=== PATIENT | female | born 1945 | race Caucasian/White ===

== ENCOUNTER 2020-04-25 10:44 | Inpatient (IN) | payer BC ==
[2020-04-25] MEDS ORDERED: Azithromycin 500 MG VIAL ONE (11:10)
[2020-04-25] MEDS ORDERED: Dexamethasone 10 MG/ML VIAL ONE (11:13)
[2020-04-25 12:27] LABS: #Lymphocytes 0.6 thou/uL (1.20-3.40); #Monocytes 0.3 thou/uL (0.11-0.59); #Neutrophils 2.5 thou/uL (1.40-6.50); %Basophils 0.3 % (0.0-1.0); %Eosinophils 0.3 % (0.0-10.0); %Lymphocytes 18.2 % (21.0-51.0); %Monocytes 8.4 % (0.0-10.0); %Neutrophils 72.7 % (42.0-75.0); Hemoglobin 12.5 g/dL (12.0-16.0); Mean Corpuscular HGB CONC 34.3 g/dL (32.0-36.0); Mean Corpuscular Hemoglobin 29.3 pg (27.0-31.0); Mean Corpuscular Volume 85.3 fL (78.0-98.0); Mean Platelet Volume 7.2 fL (7.4-10.4); Platelet Count 146 thou/uL (130-400); RBC Distribution Width 13.5 % (11.5-14.5); Red Blood Cell (RBC) Count 4.28 mill/uL (4.20-5.40); White Blood Cell (WBC) Count 3.4 thou/uL (4.8-10.8)
[2020-04-25 12:50] LABS: ALT (SGPT) 16 U/L (8-55); AST (SGOT) 37 U/L (5-34); Albumin 3.2 g/dL (3.4-4.8); Alkaline Phosphatase 80 U/L (40-110); Anion Gap 14 mmol/L (10-20); BUN (Urea Nitrogen) 12 mg/dL (9.8-20.1); Bilirubin, Total 0.8 mg/dL (0.2-1.2); Calc. Creatinine Clearance 0 mL/min (70-130); Calcium 7.8 mg/dL (7.8-10.44); Carbon Dioxide 24 mmol/L (23-31); Chloride 109 mmol/L (98-107); Estimated GFR-MDRD 79; Globulin 2.6 g/dL (2.4-3.5); Glucose 168 mg/dL (83-110); Potassium 3.4 mmol/L (3.5-5.1); Protein, Total 5.8 g/dL (6.0-8.3); Sodium 144 mmol/L (136-145)
--- NOTE | 2020-04-25 13:15 | RAD ---
PORTABLE CHEST: DATE: 04/25/2020. PROVIDED CLINICAL HISTORY: Shortness of breath. FINDINGS: Comparison 03/28/2014. Cardiac silhouette appears enlarged, which may be at least partially on the ba sis of portable technique. The lungs are hypoinflated. There is diffuse bilateral patchy airspace d isease and interstitial opacity. There is no pleural fluid or pneumothorax apparent. IMPRESSION: Diffuse bilateral interstitial and airspace disease, compatible with pneumonia. POS: [place]
[2020-04-25] MEDS ORDERED: Labetalol HCl 100 MG/20 ML VIAL ONE (13:40)
[2020-04-25] MEDS ORDERED: Ascorbic Acid 500 mg Chewable Tablet PO SCH (15:15)
[2020-04-25] MEDS ORDERED: Zinc Sulfate 220 MG CAP PO SCH (15:15)
[2020-04-25] MEDS ORDERED: Dextrose 5% in Water 1,000 ML IV PRN (16:06)
[2020-04-25] MEDS ORDERED: Dextrose 50% Abboject 50 ML SYRINGE SLOW IVP PRN (16:06)
--- NOTE | 2020-04-25 16:13 | HP ---
PRIMARY CARE PROVIDER: Joana Vidal. CHIEF COMPLAINT: Shortness of breath. HISTORY OF PRESENT ILLNESS: Ms. Escoto is a pleasant 75-year-old lady, who was seen at [facility] on April 25, 2020. She reports feeling unwell over the last 9 days. She reports cough as well as progressively worsening shortness of breath. She denies any sputum. She reports taking multiple doses of ibuprofen because of feeling unwell. She does not recall if she had a fever. She does not recall any exposure to COVID-19 virus. She reports generalized weakness. She reportedly tested positive for COVID-19 one week ago. She presented to the emergency room because of ongoing difficulty breathing. Her room air oxygen saturation was reportedly in the 80s and improved to 90s after application of supplemental oxygen. REVIEW OF SYSTEMS: All systems were reviewed and found to be negative except for the pertinent positives mentioned above. PAST MEDICAL HISTORY: 1. Diabetes mellitus. 2. Hypertension. 3. Coronary artery disease. 4. Congestive heart failure. PAST SURGICAL HISTORY: 1. Coronary artery stents. 2. Hysterectomy. 3. Tonsillectomy. SOCIAL HISTORY: The patient denies tobacco use, alcohol use, or recreational drug use. FAMILY HISTORY: No family history of premature coronary artery disease. ALLERGIES: ASPARTAME, CODEINE, GUAIFENESIN, AND MORPHINE. CURRENT MEDICATIONS: Doses need to be clarified, but she appears to be taking; 1. Isosorbide mononitrate. 2. Levothyroxine. 3. Losartan. 4. Metoprolol tartrate. 5. Pantoprazole. 6. Plavix. 7. Metformin. 8. Acarbose. 9. Aspirin. PHYSICAL EXAMINATION: GENERAL: Ms. Escoto is awake and alert, not in acute distress. VITAL SIGNS: Blood pressure is 191/92, pulse 81, respiratory rate 27, and oxygen saturation 99% on 2 L of oxygen. She is afebrile. EYES: No scleral icterus. No conjunctival pallor. ENT: Moist mucosal membranes. No oropharyngeal erythema or exudates. NECK: Supple, nontender. Trachea is midline. RESPIRATORY: Accessory muscles of breathing are mildly active. Chest wall movements are symmetric bilaterally. Lungs are clear to auscultation without wheeze, rhonchi, or crepitations. CARDIOVASCULAR: S1 and S2 are heard, regular. Peripheral pulses palpable. ABDOMEN: Soft, nontender, bowel sounds heard. NEUROLOGIC: Cranial nerves 2 through 12 are intact. MUSCULOSKELETAL: Power is 5/5 in all 4 extremities. SKIN: No rashes. LYMPHATIC: No cervical lymphadenopathy. PSYCHIATRIC: Normal mood, normal affect. The patient is oriented to person and place, not to time. LABORATORY AND DIAGNOSTIC DATA: Ms. Escoto's labs and investigations were reviewed. I reviewed her electrocardiogram, which shows normal sinus rhythm, no ST changes to suggest an acute coronary syndrome. I also reviewed her chest x-ray, which shows bilateral interstitial and airspace disease. She has leukopenia with 3400 white cells, lymphopenia with 600 lymphocytes, normal hemoglobin, normal platelet count, normal sodium, decreased potassium of 3.4, normal carbon dioxide, elevated glucose of 168, mildly elevated AST of 37, normal ALT, normal alkaline phosphatase, and normal troponin-I. ASSESSMENT AND PLAN: Ms. Escoto is a pleasant 75-year-old lady, who was seen at [facility] on April 25, 2020. Her problem list includes; 1. Acute hypoxic respiratory failure: Ms. Escoto is presenting with acute hypoxic respiratory failure, most likely secondary to COVID-19 pneumonia. She will be admitted to the hospital for further management and treated with supplemental oxygen. 2. COVID-19 pneumonia: Her presentation is most consistent with COVID-19 pneumonia. She is on day 9 of illness. She will be started on Remdesivir. She will also receive a dose of convalescent plasma. I have discussed her case with Infectious Disease Service on-call, who agrees with the plan of care. She will also be started on zinc and vitamin C. For now, she will also be covered with broad-spectrum antibiotics until she improves. 3. Diabetes mellitus type 2: Start Accu-Cheks and insulin sliding scale. 4. Coronary artery disease: Appears to be stable, the patient denies any chest pain, and troponin-I is normal. EKG does not show any acute changes. 5. Hypertension: Resume home medications once clarified, monitor vital signs and titrate antihypertensives as needed. 6. Congestive heart failure: Appears stable. 7. Many thanks for allowing me to participate in your patient's care. Please feel free to contact me with any questions or concerns. 8. Level of risk: High. 9. Level of complexity: High. 10. Estimated length of stay in the hospital: Greater than 2 midnights. Job ID: [id number]
[2020-04-25] MEDS ORDERED: REMDESIVIR (EUA) 200 MG in Sodium Chloride 0.9% 250 ML 210 ML IV SCH (17:00)
[2020-04-25] MEDS: HumaLOG 300 UNITS/3 ML VIAL SC PRN ×2 (18:13→20:32)
[2020-04-25] MEDS: Enoxaparin Sodium 30 MG/0.3 ML SYRINGE SC SCH (20:30)
[2020-04-25] MEDS: Acetaminophen 325 MG TAB PO PRN (20:30)
[2020-04-25] MEDS ORDERED: Enoxaparin Sodium 40 MG/0.4 ML SYRINGE SC SCH (21:00)
[2020-04-26] MEDS: Benzonatate 100 MG CAP PO PRN (00:54)
[2020-04-26] MEDS: Acetaminophen 325 MG TAB PO PRN (00:55)
[2020-04-26 06:55] LABS: Anion Gap 12 mmol/L (10-20); BUN (Urea Nitrogen) 18 mg/dL (9.8-20.1); Band 12 % (5-11); Calc. Creatinine Clearance 101 mL/min (70-130); Calcium 8.2 mg/dL (7.8-10.44); Carbon Dioxide 28 mmol/L (23-31); Chloride 109 mmol/L (98-107); Estimated GFR-MDRD 66; Glucose 197 mg/dL (83-110); Hemoglobin 11.2 g/dL (12.0-16.0); Lymphocytes 25 % (21-51); MDiff Complete? YES; Mean Corpuscular HGB CONC 31.9 g/dL (32.0-36.0); Mean Corpuscular Hemoglobin 27.8 pg (27.0-31.0); Mean Corpuscular Volume 87.2 fL (78.0-98.0); Mean Platelet Volume 7.5 fL (7.4-10.4); Monocytes 6 % (0-10); Neutrophil 57 % (42-75); Platelet Count 170 thou/uL (130-400); Platelet Morphology Comment Appears Adequate; Potassium 3.4 mmol/L (3.5-5.1); RBC Distribution Width 13.6 % (11.5-14.5); Red Blood Cell (RBC) Count 4.02 mill/uL (4.20-5.40); Sodium 146 mmol/L (136-145); White Blood Cell (WBC) Count 2.6 thou/uL (4.8-10.8)
[2020-04-26 07:00] LABS: ALT (SGPT) 18 U/L (8-55); AST (SGOT) 33 U/L (5-34); Albumin 3.2 g/dL (3.4-4.8); Alkaline Phosphatase 79 U/L (40-110); Bilirubin, Direct 0.3 mg/dL (0.1-0.3); Bilirubin, Total 0.5 mg/dL (0.2-1.2); Protein, Total 6.4 g/dL (6.0-8.3)
[2020-04-26] MEDS: Enoxaparin Sodium 30 MG/0.3 ML SYRINGE SC SCH ×2 (08:36→19:58)
[2020-04-26] MEDS: Ascorbic Acid 500 mg Chewable Tablet PO SCH (08:42)
[2020-04-26] MEDS: Dexamethasone 4 mg/ml Vial SLOW IVP SCH (08:42)
[2020-04-26] MEDS: Zinc Sulfate 220 MG CAP PO SCH (08:43)
[2020-04-26] MEDS ORDERED: FLU VACC QS2020-21(65YR UP)/PF 240 MCG/0.7 ML SYRINGE IM ONE (09:00)
[2020-04-26] MEDS: HumaLOG 300 UNITS/3 ML VIAL SC PRN ×3 (09:29→18:01)
[2020-04-26] MEDS: Azithromycin 500 MG in Sodium Chloride 0.9% 250 ML 250 ML IVPB SCH (11:14)
[2020-04-26] MEDS: cefTRIAXone\\ROCEPHIN 1 GM in Sodium Chloride 0.9% 100 ML IVPB SCH (11:15)
--- NOTE | 2020-04-26 11:29 | PDOC.HOSPP ---
- Subjective Encounter Date: 04/26/20 Encounter Time: 08:30 Subjective: Pt seen for followup re: acute hypoxic respiratory failure. Reports cough, on and off shortness of breath. - Objective Vital Signs & Weight: Vital Signs (12 hours) Temp Pulse Resp BP BP Pulse Ox 04/26/20 05:39 96 04/26/20 03:50 98.6 F 21 H 177/89 H 95 04/26/20 01:35 97.9 F 22 H 176/79 H 95 04/26/20 00:45 98.7 F 70 22 H 165/97 H 96 Weight Weight 244 lb 11.41 oz Most Recent Monitor Data Heart Rate from ECG 61 I&O: 04/25/20 04/26/20 04/27/20 06:59 06:59 06:59 Intake Total 790 Balance 790 Result Diagrams: 04/26/20 06:10 04/26/20 06:10 Additional Labs: Accuchecks 04/26/20 04/26/20 04/25/20 09:05 03:58 20:39 POC Glucose 178 H 179 H 240 H 04/25/20 18:01 POC Glucose 212 H I reviewed labs and MAR Hospitalist ROS - Review of Systems Constitutional: reports: weakness. denies: fever, chills, sweats, malaise Respiratory: reports: cough, SOB with excertion. denies: dry, shortness of breath, hemoptysis, pleuritic pain, sputum, wheezing Cardiovascular: denies: chest pain, palpitations, orthopnea, paroxysmal noc. dyspnea, edema, light headedness Gastrointestinal: denies: nausea, vomiting, abdominal pain, diarrhea, constipation, melena, hematochezia Genitourinary: denies: dysuria, frequency, incontinence, hematuria, retention Skin: denies: rash, lesions, phi, bruising - Medication Medications: Active Medications Generic Name Dose Route Start Last Admin Trade Name Freq PRN Reason Stop Dose Admin Acetaminophen 650 mg 04/25/20 15:11 04/26/20 00:55 Acetaminophen 325 Mg Tab PO 650 mg Q4H PRN Administration Headache/Fever/Mild Pain (1-3) Ascorbic Acid 1,000 mg 04/26/20 09:00 04/26/20 08:42 Ascorbic Acid 500 Mg Chewable Tablet PO 1,000 mg DAILY BON Administration Benzonatate 100 mg 04/25/20 23:27 04/26/20 00:54 Benzonatate 100 Mg Cap PO 100 mg TIDPRN PRN Administration Cough Dexamethasone 6 mg 04/26/20 09:00 04/26/20 08:42 Dexamethasone 4 Mg/Ml Vial SLOW IVP 6 mg DAILY BON Administration Enoxaparin Sodium 30 mg 04/25/20 21:00 04/26/20 08:36 Enoxaparin Sodium 30 Mg/0.3 Ml Syringe SC 30 mg 0900,2100 BON Administration Azithromycin 500 mg/ Sodium 250 mls @ 250 mls/hr 04/26/20 10:00 04/26/20 11:14 Chloride IVPB 250 mls Q24HR BON Administration Ceftriaxone Sodium 1 gm/ 100 mls @ 200 mls/hr 04/26/20 11:00 04/26/20 11:15 Sodium Chloride IVPB 100 mls Q24HR BON Administration Insulin Human Lispro 0 units 04/25/20 16:06 04/26/20 09:29 Humalog 300 Units/3 Ml Vial SC 2 units .MILD SLIDING SCALE PRN Administration Mild Correctional Scale Zinc Sulfate 220 mg 04/26/20 09:00 04/26/20 08:43 Zinc Sulfate 220 Mg Cap PO 220 mg DAILY BON Administration - Exam General Appearance: awake alert Eye: anicteric sclera ENT: normocephalic atraumatic, moist mucosa Neck: supple, symmetric, no thyromegaly, no lymphadenopathy Heart: RRR, no gallops, no rubs, normal peripheral pulses Respiratory: CTAB, no wheezes, no rales, no ronchi, normal chest expansion Gastrointestinal: soft, non-tender, non-distended, normal bowel sounds Extremities: no cyanosis Skin: no rashes Psychiatric: normal affect, normal behavior, oriented to person, oriented to place Hosp A/P (1) Acute respiratory failure with hypoxia Code(s): J96.01 - ACUTE RESPIRATORY FAILURE WITH HYPOXIA Status: Acute (2) Pneumonia due to COVID-19 virus Code(s): U07.1 - COVID-19; J12.89 - OTHER VIRAL PNEUMONIA Status: Acute (3) DM2 (diabetes mellitus, type 2) Status: Chronic (4) HTN (hypertension) Code(s): I10 - ESSENTIAL (PRIMARY) HYPERTENSION Status: Chronic (5) CAD (coronary artery disease) Code(s): I25.10 - ATHSCL HEART DISEASE OF [place] CORONARY ARTERY W/O ANG PCTRS Status: Chronic - Plan Pt received convalescent plasma. Started on Remdesivir, dexamethasone, zinc and Vitamin C. Monitor inflammatory markers. Resume Losartan, monitor vital signs and titrate antihypertensives as needed. Continue accuchecks and insulin sliding scale, resume metformin.
[2020-04-26] MEDS ORDERED: Potassium Chloride 20 MEQ TAB PO SCH (11:45)
[2020-04-26] MEDS ORDERED: Losartan 25 MG TAB PO SCH (11:45)
[2020-04-26] MEDS: metFORMIN 500 MG TAB PO SCH (17:33)
[2020-04-26] MEDS: REMDESIVIR (EUA) 100 MG in Sodium Chloride 0.9% 250 ML 230 ML IV SCH (17:33)
[2020-04-26] MEDS ORDERED: Enalaprilat Dihydrate 1.25 MG/ML VIAL SLOW IVP PRN (20:00)
[2020-04-26] MEDS ORDERED: hydrALAZINE 25 MG TAB PO SCH (23:59)
[2020-04-27] MEDS ORDERED: ALPRAZolam 0.25 MG TAB PO SCH (03:30)
[2020-04-27] MEDS: HumaLOG 300 UNITS/3 ML VIAL SC PRN ×3 (04:56→17:50)
[2020-04-27] MEDS: Levothyroxine Sodium 25 MCG TAB PO SCH (05:26)
[2020-04-27] MEDS: Ascorbic Acid 500 mg Chewable Tablet PO SCH (07:53)
[2020-04-27] MEDS: Losartan 25 MG TAB PO SCH (07:53)
[2020-04-27] MEDS: metFORMIN 500 MG TAB PO SCH ×2 (07:53→17:08)
[2020-04-27] MEDS: Enoxaparin Sodium 30 MG/0.3 ML SYRINGE SC SCH ×2 (07:56→20:34)
[2020-04-27] MEDS: Dexamethasone 4 mg/ml Vial SLOW IVP SCH (07:57)
[2020-04-27] MEDS: Clopidogrel Bisulfate 75 MG TAB PO SCH (07:57)
[2020-04-27] MEDS: hydrALAZINE 25 MG TAB PO SCH ×3 (08:14→20:34)
[2020-04-27] MEDS: Labetalol HCl 100 MG/20 ML VIAL SLOW IVP PRN ×2 (08:15→23:45)
[2020-04-27 08:37] LABS: #Lymphocytes 0.9 thou/uL (1.20-3.40); #Monocytes 0.6 thou/uL (0.11-0.59); #Neutrophils 8.2 thou/uL (1.40-6.50); %Basophils 0.1 % (0.0-1.0); %Eosinophils 0.1 % (0.0-10.0); %Lymphocytes 8.8 % (21.0-51.0); %Monocytes 6.6 % (0.0-10.0); %Neutrophils 84.5 % (42.0-75.0); Hemoglobin 12.8 g/dL (12.0-16.0); Mean Corpuscular HGB CONC 31.4 g/dL (32.0-36.0); Mean Corpuscular Hemoglobin 27.3 pg (27.0-31.0); Platelet Count 246 thou/uL (130-400); RBC Distribution Width 13.7 % (11.5-14.5); Red Blood Cell (RBC) Count 4.68 mill/uL (4.20-5.40); White Blood Cell (WBC) Count 9.7 thou/uL (4.8-10.8)
[2020-04-27 09:00] LABS: Anion Gap 15 mmol/L (10-20); BUN (Urea Nitrogen) 22 mg/dL (9.8-20.1); Calc. Creatinine Clearance 115 mL/min (70-130); Calcium 8.3 mg/dL (7.8-10.44); Carbon Dioxide 22 mmol/L (23-31); Chloride 113 mmol/L (98-107); Estimated GFR-MDRD 77; Glucose 192 mg/dL (83-110); Potassium 3.4 mmol/L (3.5-5.1); Sodium 147 mmol/L (136-145)
[2020-04-27 09:03] LABS: ALT (SGPT) 19 U/L (8-55); AST (SGOT) 31 U/L (5-34); Alkaline Phosphatase 74 U/L (40-110); Bilirubin, Direct 0.3 mg/dL (0.1-0.3); Bilirubin, Total 0.5 mg/dL (0.2-1.2); Protein, Total 6.4 g/dL (6.0-8.3)
[2020-04-27] MEDS: Azithromycin 500 MG in Sodium Chloride 0.9% 250 ML 250 ML IVPB SCH (10:28)
[2020-04-27] MEDS: cefTRIAXone\\ROCEPHIN 1 GM in Sodium Chloride 0.9% 100 ML IVPB SCH (10:28)
[2020-04-27] MEDS: Zinc Sulfate 220 MG CAP PO SCH (10:28)
--- NOTE | 2020-04-27 14:23 | PDOC.HOSPP ---
- Subjective Encounter Date: 04/27/20 Encounter Time: 10:50 Subjective: Patient seen for follow-up regarding acute hypoxic respiratory failure. Has increased oxygen requirements. - Objective Vital Signs & Weight: Vital Signs (12 hours) Temp Pulse Resp BP BP Pulse Ox 04/27/20 10:35 73 22 H 182/90 H 94 L 04/27/20 08:23 95 04/27/20 08:15 73 182/110 H 04/27/20 08:14 73 182/110 H 04/27/20 08:11 97.5 F L 73 20 182/110 H 95 04/27/20 04:12 98.4 F 72 24 H 173/119 H 93 L Weight Weight 244 lb 11.41 oz Most Recent Monitor Data Heart Rate from ECG 61 I&O: 04/26/20 04/27/20 04/28/20 06:59 06:59 06:59 Intake Total 790 700 Output Total 600 Balance 790 100 Result Diagrams: 04/27/20 07:55 04/27/20 07:55 Additional Labs: Accuchecks 04/27/20 04/27/20 04/26/20 10:37 04:36 20:06 POC Glucose 212 H 212 H 201 H 04/26/20 17:44 POC Glucose 203 H I reviewed patient's labs and MAR Hospitalist ROS - Review of Systems Respiratory: reports: cough, shortness of breath, SOB with excertion. denies: dry, hemoptysis, pleuritic pain, sputum, wheezing Cardiovascular: denies: chest pain, palpitations, orthopnea, paroxysmal noc. dyspnea, edema, light headedness - Medication Medications: Active Medications Generic Name Dose Route Start Last Admin Trade Name Freq PRN Reason Stop Dose Admin Acetaminophen 650 mg 04/25/20 15:11 04/26/20 00:55 Acetaminophen 325 Mg Tab PO 650 mg Q4H PRN Administration Headache/Fever/Mild Pain (1-3) Ascorbic Acid 1,000 mg 04/26/20 09:00 04/27/20 07:53 Ascorbic Acid 500 Mg Chewable Tablet PO 1,000 mg DAILY BON Administration Benzonatate 100 mg 04/25/20 23:27 04/26/20 00:54 Benzonatate 100 Mg Cap PO 100 mg TIDPRN PRN Administration Cough Clopidogrel Bisulfate 75 mg 04/27/20 09:00 04/27/20 07:57 Clopidogrel Bisulfate 75 Mg Tab PO 75 mg DAILY BON Administration Dexamethasone 6 mg 04/26/20 09:00 04/27/20 07:57 Dexamethasone 4 Mg/Ml Vial SLOW IVP 6 mg DAILY BON Administration Enalaprilat 2.5 mg 04/26/20 20:00 04/26/20 20:00 Enalaprilat Dihydrate 1.25 Mg/Ml Vial SLOW IVP 2.5 mg Q6H PRN Administration SBP Greater Than 170 Enoxaparin Sodium 30 mg 04/25/20 21:00 04/27/20 07:56 Enoxaparin Sodium 30 Mg/0.3 Ml Syringe SC 30 mg 0900,2100 BON Administration Hydralazine HCl 25 mg 04/27/20 09:00 04/27/20 08:14 Hydralazine 25 Mg Tab PO 25 mg TID BON Administration Remdesivir 100 mg/ Sodium 250 mls @ 250 mls/hr 04/26/20 17:00 04/26/20 17:33 Chloride IV 04/29/20 17:59 250 mls 1700 BON Administration Azithromycin 500 mg/ Sodium 250 mls @ 250 mls/hr 04/26/20 10:00 04/27/20 10:28 Chloride IVPB 250 mls Q24HR BON Administration Ceftriaxone Sodium 1 gm/ 100 mls @ 200 mls/hr 04/26/20 11:00 04/27/20 10:28 Sodium Chloride IVPB 100 mls Q24HR BON Administration Insulin Human Lispro 0 units 04/25/20 16:06 04/27/20 12:34 Humalog 300 Units/3 Ml Vial SC 3 units .MILD SLIDING SCALE PRN Administration Mild Correctional Scale Labetalol HCl 10 mg 04/27/20 07:47 04/27/20 08:15 Labetalol Hcl 100 Mg/20 Ml Vial SLOW IVP 10 mg Q4H PRN Administration SBP Greater Than 180 Levothyroxine Sodium 25 mcg 04/27/20 06:00 04/27/20 05:26 Levothyroxine Sodium 25 Mcg Tab PO 25 mcg 0600 BON Administration Losartan Potassium 100 mg 04/27/20 09:00 04/27/20 07:53 Losartan 25 Mg Tab PO 100 mg DAILY BON Administration Metformin HCl 500 mg 04/26/20 17:00 04/27/20 07:53 Metformin 500 Mg Tab PO 500 mg BID-WM BON Administration Zinc Sulfate 220 mg 04/26/20 09:00 04/27/20 10:28 Zinc Sulfate 220 Mg Cap PO 220 mg DAILY BON Administration - Exam General Appearance: awake alert Eye: anicteric sclera ENT: moist mucosa Neck: supple Heart: RRR Respiratory: CTAB, no wheezes Gastrointestinal: soft, non-tender Skin: no rashes Psychiatric: normal affect, normal behavior Hosp A/P (1) Acute respiratory failure with hypoxia Code(s): J96.01 - ACUTE RESPIRATORY FAILURE WITH HYPOXIA Status: Acute (2) Pneumonia due to COVID-19 virus Code(s): U07.1 - COVID-19; J12.89 - OTHER VIRAL PNEUMONIA Status: Acute (3) HTN (hypertension) Code(s): I10 - ESSENTIAL (PRIMARY) HYPERTENSION Status: Chronic (4) DM2 (diabetes mellitus, type 2) Status: Chronic (5) CAD (coronary artery disease) Code(s): I25.10 - ATHSCL HEART DISEASE OF [place] CORONARY ARTERY W/O ANG PCTRS Status: Chronic - Plan Pt received convalescent plasma. Continue remdesivir, dexamethasone, zinc and Vitamin C. Monitor inflammatory markers. Blood pressure still high, start hydralazine 25 mg 3 times daily and as needed IV labetalol 10 mg every 4 hours as needed for systolic blood pressure greater than 180 mmHg Continue accuchecks and insulin sliding scale, continue metformin.
[2020-04-27] MEDS: REMDESIVIR (EUA) 100 MG in Sodium Chloride 0.9% 250 ML 230 ML IV SCH (17:50)
[2020-04-27] MEDS ORDERED: ALPRAZolam 0.25 MG TAB PO PRN (23:07)
[2020-04-28] MEDS: HumaLOG 300 UNITS/3 ML VIAL SC PRN ×4 (04:43→21:17)
[2020-04-28] MEDS: Levothyroxine Sodium 25 MCG TAB PO SCH (05:30)
[2020-04-28 06:48] LABS: #Lymphocytes 0.7 thou/uL (1.20-3.40); #Monocytes 0.5 thou/uL (0.11-0.59); #Neutrophils 8.4 thou/uL (1.40-6.50); %Basophils 0.1 % (0.0-1.0); %Eosinophils 0.1 % (0.0-10.0); %Lymphocytes 6.8 % (21.0-51.0); %Monocytes 5.5 % (0.0-10.0); %Neutrophils 87.5 % (42.0-75.0); Hemoglobin 12.6 g/dL (12.0-16.0); Mean Corpuscular HGB CONC 33.1 g/dL (32.0-36.0); Mean Corpuscular Hemoglobin 28.3 pg (27.0-31.0); Mean Corpuscular Volume 85.6 fL (78.0-98.0); Mean Platelet Volume 7.2 fL (7.4-10.4); Platelet Count 246 thou/uL (130-400); RBC Distribution Width 13.8 % (11.5-14.5); Red Blood Cell (RBC) Count 4.46 mill/uL (4.20-5.40); White Blood Cell (WBC) Count 9.7 thou/uL (4.8-10.8)
[2020-04-28 07:03] LABS: Anion Gap 16 mmol/L (10-20); BUN (Urea Nitrogen) 23 mg/dL (9.8-20.1); CRP (Inflammatory) 6.47 mg/dL (= or < 0.5); Calc. Creatinine Clearance 117 mL/min (70-130); Carbon Dioxide 22 mmol/L (23-31); Chloride 114 mmol/L (98-107); Estimated GFR-MDRD 78; Glucose 231 mg/dL (83-110); Potassium 3.2 mmol/L (3.5-5.1); Sodium 149 mmol/L (136-145)
[2020-04-28 07:15] LABS: ALT (SGPT) 18 U/L (8-55); AST (SGOT) 27 U/L (5-34); Alkaline Phosphatase 79 U/L (40-110); Bilirubin, Direct 0.3 mg/dL (0.1-0.3); Bilirubin, Total 0.5 mg/dL (0.2-1.2); Protein, Total 5.9 g/dL (6.0-8.3)
[2020-04-28] MEDS: Dexamethasone 4 mg/ml Vial SLOW IVP SCH (10:02)
[2020-04-28] MEDS: Azithromycin 500 MG in Sodium Chloride 0.9% 250 ML 250 ML IVPB SCH (10:02)
[2020-04-28] MEDS: Enoxaparin Sodium 30 MG/0.3 ML SYRINGE SC SCH ×2 (10:03→19:46)
[2020-04-28] MEDS: Clopidogrel Bisulfate 75 MG TAB PO SCH (10:04)
[2020-04-28] MEDS: Ascorbic Acid 500 mg Chewable Tablet PO SCH (10:04)
[2020-04-28] MEDS: Losartan 25 MG TAB PO SCH (10:04)
[2020-04-28] MEDS: Zinc Sulfate 220 MG CAP PO SCH (10:04)
[2020-04-28] MEDS: hydrALAZINE 25 MG TAB PO SCH ×3 (10:04→19:47)
[2020-04-28] MEDS: metFORMIN 500 MG TAB PO SCH ×2 (10:05→16:21)
[2020-04-28] MEDS: cefTRIAXone\\ROCEPHIN 1 GM in Sodium Chloride 0.9% 100 ML IVPB SCH (11:47)
--- NOTE | 2020-04-28 12:31 | PDOC.HOSPP ---
- Subjective Encounter Date: 04/28/20 Encounter Time: 10:00 Subjective: Patient seen in follow-up for COVID-19 pneumonia. Had an episode of anxiety last night. Is having increasing oxygen requirements. - Objective Vital Signs & Weight: Vital Signs (12 hours) Temp Pulse Resp BP BP BP Pulse Ox 04/28/20 12:07 98.5 F 79 25 H 170/104 H 94 L 04/28/20 10:04 75 196/124 H 04/28/20 08:00 98 F 79 26 H 175/94 H 91 L Weight Weight 244 lb 11.41 oz Most Recent Monitor Data Heart Rate from ECG 61 I&O: 04/27/20 04/28/20 04/29/20 06:59 06:59 06:59 Intake Total 700 1130 Output Total 600 Balance 100 1130 Result Diagrams: 04/28/20 06:26 04/28/20 06:26 Additional Labs: Accuchecks 04/28/20 04/27/20 04/27/20 11:15 20:44 17:14 POC Glucose 223 H 226 H 249 H I reviewed patient's labs and MAR Hospitalist ROS - Review of Systems Respiratory: reports: cough, dry Cardiovascular: denies: chest pain, palpitations, orthopnea, paroxysmal noc. dyspnea, edema, light headedness - Medication Medications: Active Medications Generic Name Dose Route Start Last Admin Trade Name Freq PRN Reason Stop Dose Admin Acetaminophen 650 mg 04/25/20 15:11 04/26/20 00:55 Acetaminophen 325 Mg Tab PO 650 mg Q4H PRN Administration Headache/Fever/Mild Pain (1-3) Alprazolam 0.25 mg 04/27/20 23:07 04/27/20 23:11 Alprazolam 0.25 Mg Tab PO 0.25 mg HSPRN PRN Administration Anxiety/Insomnia Ascorbic Acid 1,000 mg 04/26/20 09:00 04/28/20 10:04 Ascorbic Acid 500 Mg Chewable Tablet PO 1,000 mg DAILY BON Administration Benzonatate 100 mg 04/25/20 23:27 04/26/20 00:54 Benzonatate 100 Mg Cap PO 100 mg TIDPRN PRN Administration Cough Clopidogrel Bisulfate 75 mg 04/27/20 09:00 04/28/20 10:04 Clopidogrel Bisulfate 75 Mg Tab PO 75 mg DAILY BON Administration Dexamethasone 6 mg 04/26/20 09:00 04/28/20 10:02 Dexamethasone 4 Mg/Ml Vial SLOW IVP 6 mg DAILY BON Administration Enalaprilat 2.5 mg 04/26/20 20:00 04/26/20 20:00 Enalaprilat Dihydrate 1.25 Mg/Ml Vial SLOW IVP 2.5 mg Q6H PRN Administration SBP Greater Than 170 Enoxaparin Sodium 30 mg 04/25/20 21:00 04/28/20 10:03 Enoxaparin Sodium 30 Mg/0.3 Ml Syringe SC 30 mg 0900,2100 BON Administration Hydralazine HCl 50 mg 04/28/20 09:00 04/28/20 10:04 Hydralazine 25 Mg Tab PO 50 mg TID BON Administration Remdesivir 100 mg/ Sodium 250 mls @ 250 mls/hr 04/26/20 17:00 04/27/20 17:50 Chloride IV 04/29/20 17:59 250 mls 1700 BON Administration Azithromycin 500 mg/ Sodium 250 mls @ 250 mls/hr 04/26/20 10:00 04/28/20 10:02 Chloride IVPB 250 mls Q24HR BON Administration Ceftriaxone Sodium 1 gm/ 100 mls @ 200 mls/hr 04/26/20 11:00 04/28/20 11:47 Sodium Chloride IVPB 100 mls Q24HR BON Administration Insulin Human Lispro 0 units 04/25/20 16:06 04/28/20 11:48 Humalog 300 Units/3 Ml Vial SC 3 units .MILD SLIDING SCALE PRN Administration Mild Correctional Scale Labetalol HCl 10 mg 04/27/20 07:47 04/27/20 23:45 Labetalol Hcl 100 Mg/20 Ml Vial SLOW IVP 10 mg Q4H PRN Administration SBP Greater Than 180 Levothyroxine Sodium 25 mcg 04/27/20 06:00 04/28/20 05:30 Levothyroxine Sodium 25 Mcg Tab PO 25 mcg 0600 BON Administration Losartan Potassium 100 mg 04/27/20 09:00 04/28/20 10:04 Losartan 25 Mg Tab PO 100 mg DAILY BON Administration Metformin HCl 500 mg 04/26/20 17:00 04/28/20 10:05 Metformin 500 Mg Tab PO 500 mg BID-WM BON Administration Zinc Sulfate 220 mg 04/26/20 09:00 04/28/20 10:04 Zinc Sulfate 220 Mg Cap PO 220 mg DAILY OBN Administration - Exam General Appearance: awake alert Eye: anicteric sclera ENT: moist mucosa Neck: supple Heart: RRR Respiratory: CTAB, no wheezes Skin: no rashes Psychiatric: normal affect, normal behavior Hosp A/P (1) Pneumonia due to COVID-19 virus Code(s): U07.1 - COVID-19; J12.89 - OTHER VIRAL PNEUMONIA Status: Acute (2) Acute respiratory failure with hypoxia Code(s): J96.01 - ACUTE RESPIRATORY FAILURE WITH HYPOXIA Status: Acute (3) HTN (hypertension) Code(s): I10 - ESSENTIAL (PRIMARY) HYPERTENSION Status: Chronic (4) DM2 (diabetes mellitus, type 2) Status: Chronic (5) CAD (coronary artery disease) Code(s): I25.10 - ATHSCL HEART DISEASE OF [place] CORONARY ARTERY W/O ANG PCTRS Status: Chronic - Plan Pt received convalescent plasma, currently on remdesivir, dexamethasone, zinc and Vitamin C. Continue to monitor inflammatory markers. Blood pressure still high, increase hydralazine to 50 mg p.o. 3 times daily. Continue accuchecks and insulin sliding scale, continue metformin. Patient may need high flow oxygen.
[2020-04-28] MEDS: REMDESIVIR (EUA) 100 MG in Sodium Chloride 0.9% 250 ML 230 ML IV SCH (16:57)
[2020-04-28] MEDS: ALPRAZolam 0.25 MG TAB PO PRN (19:47)
[2020-04-28] MEDS: Benzonatate 100 MG CAP PO PRN (19:52)
[2020-04-28] MEDS: Labetalol HCl 100 MG/20 ML VIAL SLOW IVP PRN (21:18)
[2020-04-29] MEDS: Melatonin 3 MG TAB PO PRN (00:09)
[2020-04-29] MEDS: Benzonatate 100 MG CAP PO PRN ×2 (05:10→21:19)
[2020-04-29] MEDS: Levothyroxine Sodium 25 MCG TAB PO SCH (05:10)
[2020-04-29] MEDS: HumaLOG 300 UNITS/3 ML VIAL SC PRN ×3 (05:30→20:48)
[2020-04-29] MEDS: ALPRAZolam 0.25 MG TAB PO PRN ×3 (05:30→16:40)
[2020-04-29] MEDS: Ondansetron PF 4 MG/2 ML Vial IVP PRN (05:30)
[2020-04-29] MEDS: Labetalol HCl 100 MG/20 ML VIAL SLOW IVP PRN ×3 (05:43→17:02)
[2020-04-29 05:59] LABS: ALT (SGPT) 17 U/L (8-55); AST (SGOT) 22 U/L (5-34); Albumin 2.9 g/dL (3.4-4.8); Alkaline Phosphatase 79 U/L (40-110); Bilirubin, Direct 0.3 mg/dL (0.1-0.3); Bilirubin, Total 0.5 mg/dL (0.2-1.2)
[2020-04-29] MEDS: Dexamethasone 4 mg/ml Vial SLOW IVP SCH (08:53)
[2020-04-29] MEDS: Zinc Sulfate 220 MG CAP PO SCH (08:53)
[2020-04-29] MEDS: Ascorbic Acid 500 mg Chewable Tablet PO SCH (08:53)
[2020-04-29] MEDS: Enoxaparin Sodium 30 MG/0.3 ML SYRINGE SC SCH ×2 (08:54→20:13)
[2020-04-29] MEDS: Clopidogrel Bisulfate 75 MG TAB PO SCH (08:54)
[2020-04-29] MEDS: metFORMIN 500 MG TAB PO SCH ×2 (08:54→16:40)
[2020-04-29] MEDS: Losartan 25 MG TAB PO SCH (08:54)
[2020-04-29] MEDS: Azithromycin 500 MG in Sodium Chloride 0.9% 250 ML 250 ML IVPB SCH (09:01)
[2020-04-29] MEDS: hydrALAZINE 25 MG TAB PO SCH ×3 (09:02→20:14)
[2020-04-29] MEDS: cefTRIAXone\\ROCEPHIN 1 GM in Sodium Chloride 0.9% 100 ML IVPB SCH (11:54)
[2020-04-29] MEDS: REMDESIVIR (EUA) 100 MG in Sodium Chloride 0.9% 250 ML 230 ML IV SCH (18:11)
[2020-04-29] MEDS ORDERED: Haloperidol Lactate 5 MG/ML VIAL IM PRN (18:44)
--- NOTE | 2020-04-29 19:02 | PDOC.HOSPP ---
- Subjective Encounter Date: 04/29/20 Encounter Time: 11:00 Subjective: Patient was seen for follow-up regarding COVID-19 pneumonia. Has episodes of agitation. Was transitioned to high flow oxygen. Reports burning sensation in the nose. - Objective Vital Signs & Weight: Vital Signs (12 hours) Temp Pulse Resp BP BP Pulse Ox 04/29/20 17:02 82 181/109 H 04/29/20 16:56 82 24 H 180/109 H 95 04/29/20 14:20 83 178/100 H 04/29/20 14:18 97.7 F 83 22 H 178/100 H 94 L 04/29/20 11:29 98.7 F 83 22 H 171/99 H 95 04/29/20 10:31 96 04/29/20 10:00 25 H 174/104 H 95 04/29/20 09:10 87 L 04/29/20 09:08 74 182/111 H 04/29/20 09:02 74 04/29/20 09:00 98.5 F 78 36 H 182/111 H 87 L Weight Weight 244 lb 11.41 oz Most Recent Monitor Data Heart Rate from ECG 61 I&O: 04/28/20 04/29/20 04/30/20 06:59 06:59 06:59 Intake Total 1130 1460 750 Output Total 675 400 Balance 1130 785 350 Result Diagrams: 04/28/20 06:26 04/28/20 06:26 Additional Labs: Accuchecks 04/29/20 04/29/20 04/29/20 16:37 11:21 05:13 POC Glucose 301 H 253 H 226 H 04/28/20 04/28/20 19:56 04:29 POC Glucose 301 H 222 H Labs and MAR reviewed by mi Hospitalist ROS - Review of Systems Constitutional: reports: weakness. denies: fever, chills, sweats, malaise Respiratory: reports: cough, dry, shortness of breath Cardiovascular: denies: chest pain, palpitations, orthopnea, paroxysmal noc. dyspnea, edema, light headedness - Medication Medications: Active Medications Generic Name Dose Route Start Last Admin Trade Name Freq PRN Reason Stop Dose Admin Acetaminophen 650 mg 04/25/20 15:11 04/26/20 00:55 Acetaminophen 325 Mg Tab PO 650 mg Q4H PRN Administration Headache/Fever/Mild Pain (1-3) Alprazolam 0.25 mg 04/29/20 15:15 04/29/20 16:40 Alprazolam 0.25 Mg Tab PO 0.25 mg Q6H PRN Administration Anxiety Ascorbic Acid 1,000 mg 04/26/20 09:00 04/29/20 08:53 Ascorbic Acid 500 Mg Chewable Tablet PO 1,000 mg DAILY BON Administration Benzonatate 100 mg 04/25/20 23:27 04/29/20 05:10 Benzonatate 100 Mg Cap PO 100 mg TIDPRN PRN Administration Cough Clopidogrel Bisulfate 75 mg 04/27/20 09:00 04/29/20 08:54 Clopidogrel Bisulfate 75 Mg Tab PO 75 mg DAILY BON Administration Dexamethasone 6 mg 04/26/20 09:00 04/29/20 08:53 Dexamethasone 4 Mg/Ml Vial SLOW IVP 6 mg DAILY BON Administration Enalaprilat 2.5 mg 04/26/20 20:00 04/26/20 20:00 Enalaprilat Dihydrate 1.25 Mg/Ml Vial SLOW IVP 2.5 mg Q6H PRN Administration SBP Greater Than 170 Enoxaparin Sodium 30 mg 04/25/20 21:00 04/29/20 08:54 Enoxaparin Sodium 30 Mg/0.3 Ml Syringe SC 30 mg 0900,2100 BON Administration Hydralazine HCl 75 mg 04/29/20 09:00 04/29/20 14:20 Hydralazine 25 Mg Tab PO 75 mg TID BON Administration Azithromycin 500 mg/ Sodium 250 mls @ 250 mls/hr 04/26/20 10:00 04/29/20 09:01 Chloride IVPB 250 mls Q24HR BON Administration Ceftriaxone Sodium 1 gm/ 100 mls @ 200 mls/hr 04/26/20 11:00 04/29/20 11:54 Sodium Chloride IVPB 100 mls Q24HR BON Administration Insulin Human Lispro 0 units 04/25/20 16:06 04/29/20 16:55 Humalog 300 Units/3 Ml Vial SC 5 units .MILD SLIDING SCALE PRN Administration Mild Correctional Scale Insulin Human Lispro 0 units 04/28/20 20:35 04/28/20 21:17 Humalog 300 Units/3 Ml Vial SC 4 unit .BEDTIME SLIDING SC PRN Administration Bedtime Correctional Scale Labetalol HCl 10 mg 04/27/20 07:47 04/29/20 17:02 Labetalol Hcl 100 Mg/20 Ml Vial SLOW IVP 10 mg Q4H PRN Administration SBP Greater Than 180 Levothyroxine Sodium 25 mcg 04/27/20 06:00 04/29/20 05:10 Levothyroxine Sodium 25 Mcg Tab PO 25 mcg 0600 BON Administration Losartan Potassium 100 mg 04/27/20 09:00 04/29/20 08:54 Losartan 25 Mg Tab PO 100 mg DAILY BON Administration Melatonin 3 mg 04/29/20 00:03 04/29/20 00:09 Melatonin 3 Mg Tab PO 3 mg HS PRN Administration Insomnia Metformin HCl 500 mg 04/26/20 17:00 04/29/20 16:40 Metformin 500 Mg Tab PO 500 mg BID-WM BON Administration Ondansetron HCl 4 mg 04/25/20 15:11 04/29/20 05:30 Ondansetron Pf 4 Mg/2 Ml Vial IVP 4 mg Q6H PRN Administration Nausea/Vomiting Zinc Sulfate 220 mg 04/26/20 09:00 04/29/20 08:53 Zinc Sulfate 220 Mg Cap PO 220 mg DAILY BON Administration - Exam General - other findings: Morbid obesity Eye: anicteric sclera ENT: moist mucosa Neck: supple Heart: RRR Respiratory: CTAB Gastrointestinal: soft, non-tender Psychiatric: normal affect, normal behavior Hosp A/P (1) Pneumonia due to COVID-19 virus Code(s): U07.1 - COVID-19; J12.89 - OTHER VIRAL PNEUMONIA Status: Acute (2) Acute respiratory failure with hypoxia Code(s): J96.01 - ACUTE RESPIRATORY FAILURE WITH HYPOXIA Status: Acute (3) HTN (hypertension) Code(s): I10 - ESSENTIAL (PRIMARY) HYPERTENSION Status: Chronic (4) DM2 (diabetes mellitus, type 2) Status: Chronic (5) CAD (coronary artery disease) Code(s): I25.10 - ATHSCL HEART DISEASE OF [place] CORONARY ARTERY W/O ANG PCTRS Status: Chronic - Plan Pt received convalescent plasma, received last dose of remdesivir today., Continue dexamethasone, zinc and Vitamin C. Continue to monitor inflammatory markers. Blood pressure still high, increase hydralazine to 75 mg p.o. 3 times daily. Continue accuchecks and insulin sliding scale, continue metformin. Patient is on high flow oxygen. As needed Haldol for agitation. As needed Ambien for insomnia. Change Xanax to 0.25 mg p.o. every 6 hours as needed. Family updated over telephone.
[2020-04-29] MEDS: Acetaminophen 325 MG TAB PO PRN (20:14)
[2020-04-29] MEDS: Zolpidem Tartrate 5 MG TAB PO PRN (20:48)
[2020-04-30] MEDS: ALPRAZolam 0.25 MG TAB PO PRN ×3 (04:47→23:18)
[2020-04-30] MEDS: Acetaminophen 325 MG TAB PO PRN ×2 (04:47→20:14)
[2020-04-30] MEDS: Ondansetron PF 4 MG/2 ML Vial IVP PRN (04:58)
[2020-04-30] MEDS: Levothyroxine Sodium 25 MCG TAB PO SCH (05:05)
[2020-04-30] MEDS: HumaLOG 300 UNITS/3 ML VIAL SC PRN ×4 (05:05→20:15)
[2020-04-30] MEDS: Benzonatate 100 MG CAP PO PRN ×2 (05:20→20:14)
[2020-04-30] MEDS: Enoxaparin Sodium 30 MG/0.3 ML SYRINGE SC SCH ×2 (08:37→20:14)
[2020-04-30] MEDS: Zinc Sulfate 220 MG CAP PO SCH (08:38)
[2020-04-30] MEDS: Losartan 25 MG TAB PO SCH (08:38)
[2020-04-30] MEDS: hydrALAZINE 25 MG TAB PO SCH ×3 (08:38→20:15)
[2020-04-30] MEDS: Ascorbic Acid 500 mg Chewable Tablet PO SCH (08:38)
[2020-04-30] MEDS: Dexamethasone 4 mg/ml Vial SLOW IVP SCH (08:39)
[2020-04-30] MEDS: Clopidogrel Bisulfate 75 MG TAB PO SCH (08:39)
[2020-04-30] MEDS: metFORMIN 500 MG TAB PO SCH ×2 (08:39→16:51)
[2020-04-30 08:49] LABS: ALT (SGPT) 19 U/L (8-55); AST (SGOT) 16 U/L (5-34); Albumin 2.6 g/dL (3.4-4.8); Alkaline Phosphatase 76 U/L (40-110); Bilirubin, Direct 0.3 mg/dL (0.1-0.3); Bilirubin, Total 0.5 mg/dL (0.2-1.2); Protein, Total 5.5 g/dL (6.0-8.3)
[2020-04-30] MEDS: Azithromycin 500 MG in Sodium Chloride 0.9% 250 ML 250 ML IVPB SCH (10:13)
[2020-04-30] MEDS: cefTRIAXone\\ROCEPHIN 1 GM in Sodium Chloride 0.9% 100 ML IVPB SCH (12:31)
--- NOTE | 2020-04-30 15:20 | PDOC.HOSPP ---
- Subjective Encounter Date: 04/30/20 Encounter Time: 10:00 Subjective: Patient seen for follow-up regarding COVID-19 pneumonia. Reports that she feels slightly better today. - Objective Vital Signs & Weight: Vital Signs (12 hours) Temp Pulse Resp BP BP Pulse Ox 04/30/20 09:00 168/88 H 04/30/20 08:38 75 04/30/20 08:00 97.4 F L 82 20 180/89 H 93 L 04/30/20 04:35 99 F 75 22 H 173/85 H 99 Weight Weight 244 lb 11.41 oz Most Recent Monitor Data Heart Rate from ECG 61 I&O: 04/29/20 04/30/20 05/01/20 06:59 06:59 06:59 Intake Total 1460 1450 Output Total 675 800 Balance 785 650 Result Diagrams: 04/28/20 06:26 04/28/20 06:26 Additional Labs: Accuchecks 04/30/20 04/30/20 04/29/20 12:38 04:40 20:47 POC Glucose 236 H 245 H 312 H 04/29/20 04/28/20 16:37 04:29 POC Glucose 301 H 222 H I reviewed patient's labs and MAR Hospitalist ROS - Review of Systems Constitutional: reports: weakness Respiratory: reports: cough, dry, SOB with excertion. denies: shortness of br eath, hemoptysis, pleuritic pain, sputum, wheezing Skin: denies: rash, lesions, phi, bruising - Medication Medications: Active Medications Generic Name Dose Route Start Last Admin Trade Name Freq PRN Reason Stop Dose Admin Acetaminophen 650 mg 04/25/20 15:11 04/30/20 04:47 Acetaminophen 325 Mg Tab PO 650 mg Q4H PRN Administration Headache/Fever/Mild Pain (1-3) Alprazolam 0.25 mg 04/29/20 15:15 04/30/20 04:47 Alprazolam 0.25 Mg Tab PO 0.25 mg Q6H PRN Administration Anxiety Ascorbic Acid 1,000 mg 04/26/20 09:00 04/30/20 08:38 Ascorbic Acid 500 Mg Chewable Tablet PO 1,000 mg DAILY BON Administration Benzonatate 100 mg 04/25/20 23:27 04/30/20 05:20 Benzonatate 100 Mg Cap PO 100 mg TIDPRN PRN Administration Cough Clopidogrel Bisulfate 75 mg 04/27/20 09:00 04/30/20 08:39 Clopidogrel Bisulfate 75 Mg Tab PO 75 mg DAILY BON Administration Dexamethasone 6 mg 04/26/20 09:00 04/30/20 08:39 Dexamethasone 4 Mg/Ml Vial SLOW IVP 6 mg DAILY BON Administration Enalaprilat 2.5 mg 04/26/20 20:00 04/26/20 20:00 Enalaprilat Dihydrate 1.25 Mg/Ml Vial SLOW IVP 2.5 mg Q6H PRN Administration SBP Greater Than 170 Enoxaparin Sodium 30 mg 04/25/20 21:00 04/30/20 08:37 Enoxaparin Sodium 30 Mg/0.3 Ml Syringe SC 30 mg 09,2100 BON Administration Hydralazine HCl 75 mg 04/29/20 09:00 04/30/20 08:38 Hydralazine 25 Mg Tab PO 75 mg TID BON Administration Azithromycin 500 mg/ Sodium 250 mls @ 250 mls/hr 04/26/20 10:00 04/30/20 10:13 Chloride IVPB 250 mls Q24HR BON Administration Ceftriaxone Sodium 1 gm/ 100 mls @ 200 mls/hr 04/26/20 11:00 04/30/20 12:31 Sodium Chloride IVPB 100 mls Q24HR BON Administration Insulin Human Lispro 0 units 04/25/20 16:06 04/30/20 13:01 Humalog 300 Units/3 Ml Vial SC 3 units .MILD SLIDING SCALE PRN Administration Mild Correctional Scale Insulin Human Lispro 0 units 04/28/20 20:35 04/29/20 20:48 Humalog 300 Units/3 Ml Vial SC 4 unit .BEDTIME SLIDING SC PRN Administration Bedtime Correctional Scale Labetalol HCl 10 mg 04/27/20 07:47 04/29/20 17:02 Labetalol Hcl 100 Mg/20 Ml Vial SLOW IVP 10 mg Q4H PRN Administration SBP Greater Than 180 Levothyroxine Sodium 25 mcg 04/27/20 06:00 04/30/20 05:05 Levothyroxine Sodium 25 Mcg Tab PO 25 mcg 0600 BON Administration Losartan Potassium 100 mg 04/27/20 09:00 04/30/20 08:38 Losartan 25 Mg Tab PO 100 mg DAILY BON Administration Melatonin 3 mg 04/29/20 00:03 04/29/20 00:09 Melatonin 3 Mg Tab PO 3 mg HS PRN Administration Insomnia Metformin HCl 500 mg 04/26/20 17:00 04/30/20 08:39 Metformin 500 Mg Tab PO 500 mg BID-WM BON Administration Ondansetron HCl 4 mg 04/25/20 15:11 04/30/20 04:58 Ondansetron Pf 4 Mg/2 Ml Vial IVP 4 mg Q6H PRN Administration Nausea/Vomiting Zinc Sulfate 220 mg 04/26/20 09:00 04/30/20 08:38 Zinc Sulfate 220 Mg Cap PO 220 mg DAILY BON Administration Zolpidem Tartrate 5 mg 04/29/20 18:46 04/29/20 20:48 Zolpidem Tartrate 5 Mg Tab PO 5 mg HSPRN PRN Administration Insomnia - Exam General Appearance: awake alert General - other findings: Morbid obese Eye: anicteric sclera ENT: normocephalic atraumatic, moist mucosa Neck: supple Heart: RRR Respiratory: CTAB Gastrointestinal: soft, non-tender Skin: no rashes Psychiatric: normal affect, normal behavior Hosp A/P (1) Pneumonia due to COVID-19 virus Code(s): U07.1 - COVID-19; J12.89 - OTHER VIRAL PNEUMONIA Status: Acute (2) Acute respiratory failure with hypoxia Code(s): J96.01 - ACUTE RESPIRATORY FAILURE WITH HYPOXIA Status: Acute (3) HTN (hypertension) Code(s): I10 - ESSENTIAL (PRIMARY) HYPERTENSION Status: Chronic (4) DM2 (diabetes mellitus, type 2) Status: Chronic (5) CAD (coronary artery disease) Code(s): I25.10 - ATHSCL HEART DISEASE OF [place] CORONARY ARTERY W/O ANG PCTRS Status: Chronic - Plan S/P convalescent plasma, s/p remdesivir treatment. Patient is on dexamethasone, zinc and Vitamin C. Continue to monitor inflammatory markers. Monitor vital signs and titrate antihypertensives as needed. Continue accuchecks and insulin sliding scale, continue metformin. Patient is on high flow oxygen. Continue as needed Haldol for agitation. Continue as needed Ambien for insomnia. Continue Xanax 0.25 mg p.o. every 6 hours as needed. Family updated over telephone.
[2020-04-30] MEDS: Zolpidem Tartrate 5 MG TAB PO PRN (20:15)
[2020-05-01] MEDS: Acetaminophen 325 MG TAB PO PRN ×3 (04:19→19:58)
[2020-05-01] MEDS: ALPRAZolam 0.25 MG TAB PO PRN ×3 (04:50→19:59)
[2020-05-01] MEDS: HumaLOG 300 UNITS/3 ML VIAL SC PRN ×2 (05:00→17:07)
[2020-05-01] MEDS: Levothyroxine Sodium 25 MCG TAB PO SCH (05:00)
[2020-05-01] MEDS: Enoxaparin Sodium 30 MG/0.3 ML SYRINGE SC SCH ×2 (08:43→19:59)
[2020-05-01] MEDS: Losartan 25 MG TAB PO SCH (08:44)
[2020-05-01] MEDS: hydrALAZINE 25 MG TAB PO SCH ×3 (08:44→19:58)
[2020-05-01] MEDS: metFORMIN 500 MG TAB PO SCH ×2 (08:44→17:07)
[2020-05-01] MEDS: Dexamethasone 4 mg/ml Vial SLOW IVP SCH (08:44)
[2020-05-01] MEDS: Zinc Sulfate 220 MG CAP PO SCH (08:44)
[2020-05-01] MEDS: Clopidogrel Bisulfate 75 MG TAB PO SCH (08:45)
[2020-05-01] MEDS: Azithromycin 500 MG in Sodium Chloride 0.9% 250 ML 250 ML IVPB SCH (08:45)
[2020-05-01] MEDS: Ascorbic Acid 500 mg Chewable Tablet PO SCH (08:45)
[2020-05-01] MEDS ORDERED: Azithromycin 250 MG TAB PO SCH (10:45)
--- NOTE | 2020-05-01 17:03 | PDOC.HOSPP ---
- Subjective Encounter Date: 05/01/20 Encounter Time: 10:00 Subjective: Patient seen for follow-up regarding COVID-19 pneumonia. She reports shortness of breath with exertion. She denies chest pain. - Objective Vital Signs & Weight: Vital Signs (12 hours) Temp Pulse Resp BP Pulse Ox 05/01/20 11:51 99.8 F H 95 16 172/90 H 95 05/01/20 08:44 85 05/01/20 08:00 98.4 F 94 22 H 181/75 H 94 L Weight Weight 244 lb 11.41 oz Most Recent Monitor Data Heart Rate from ECG 61 I&O: 04/30/20 05/01/20 05/02/20 06:59 06:59 06:59 Intake Total 1450 310 Output Total 800 250 Balance 650 60 Result Diagrams: 04/28/20 06:26 04/28/20 06:26 Additional Labs: Accuchecks 04/30/20 19:21 POC Glucose 280 H Labs and MAR reviewed by me Hospitalist ROS - Review of Systems Respiratory: reports: cough, dry, SOB with excertion Gastrointestinal: denies: nausea, vomiting, abdominal pain, diarrhea, constipation, melena, hematochezia Genitourinary: denies: dysuria, frequency, incontinence, hematuria, retention - Medication Medications: Active Medications Generic Name Dose Route Start Last Admin Trade Name Freq PRN Reason Stop Dose Admin Acetaminophen 650 mg 04/25/20 15:11 05/01/20 04:19 Acetaminophen 325 Mg Tab PO 650 mg Q4H PRN Administration Headache/Fever/Mild Pain (1-3) Alprazolam 0.25 mg 04/29/20 15:15 05/01/20 13:28 Alprazolam 0.25 Mg Tab PO 0.25 mg Q6H PRN Administration Anxiety Ascorbic Acid 1,000 mg 04/26/20 09:00 05/01/20 08:45 Ascorbic Acid 500 Mg Chewable Tablet PO 1,000 mg DAILY BON Administration Benzonatate 100 mg 04/25/20 23:27 04/30/20 20:14 Benzonatate 100 Mg Cap PO 100 mg TIDPRN PRN Administration Cough Clopidogrel Bisulfate 75 mg 04/27/20 09:00 05/01/20 08:45 Clopidogrel Bisulfate 75 Mg Tab PO 75 mg DAILY BON Administration Enalaprilat 2.5 mg 04/26/20 20:00 04/26/20 20:00 Enalaprilat Dihydrate 1.25 Mg/Ml Vial SLOW IVP 2.5 mg Q6H PRN Administration SBP Greater Than 170 Enoxaparin Sodium 30 mg 04/25/20 21:00 05/01/20 08:43 Enoxaparin Sodium 30 Mg/0.3 Ml Syringe SC 30 mg 0900,2100 BON Administration Hydralazine HCl 75 mg 04/29/20 09:00 05/01/20 08:44 Hydralazine 25 Mg Tab PO 75 mg TID BON Administration Insulin Human Lispro 0 units 04/25/20 16:06 05/01/20 05:00 Humalog 300 Units/3 Ml Vial SC 3 units .MILD SLIDING SCALE PRN Administration Mild Correctional Scale Insulin Human Lispro 0 units 04/28/20 20:35 04/30/20 20:15 Humalog 300 Units/3 Ml Vial SC 3 unit .BEDTIME SLIDING SC PRN Administration Bedtime Correctional Scale Labetalol HCl 10 mg 04/27/20 07:47 04/29/20 17:02 Labetalol Hcl 100 Mg/20 Ml Vial SLOW IVP 10 mg Q4H PRN Administration SBP Greater Than 180 Levothyroxine Sodium 25 mcg 04/27/20 06:00 05/01/20 05:00 Levothyroxine Sodium 25 Mcg Tab PO 25 mcg 0600 BON Administration Losartan Potassium 100 mg 04/27/20 09:00 05/01/20 08:44 Losartan 25 Mg Tab PO 100 mg DAILY BON Administration Melatonin 3 mg 04/29/20 00:03 04/29/20 00:09 Melatonin 3 Mg Tab PO 3 mg HS PRN Administration Insomnia Metformin HCl 500 mg 04/26/20 17:00 05/01/20 08:44 Metformin 500 Mg Tab PO 500 mg BID-WM BON Administration Ondansetron HCl 4 mg 04/25/20 15:11 04/30/20 04:58 Ondansetron Pf 4 Mg/2 Ml Vial IVP 4 mg Q6H PRN Administration Nausea/Vomiting Zinc Sulfate 220 mg 04/26/20 09:00 05/01/20 08:44 Zinc Sulfate 220 Mg Cap PO 220 mg DAILY BON Administration Zolpidem Tartrate 5 mg 04/29/20 18:46 04/30/20 20:15 Zolpidem Tartrate 5 Mg Tab PO 5 mg HSPRN PRN Administration Insomnia - Exam General - other findings: Morbid obesity ENT: moist mucosa Neck: supple Heart: RRR Respiratory: CTAB Gastrointestinal: soft, non-tender Skin: no rashes Psychiatric: normal affect Hosp A/P (1) Pneumonia due to COVID-19 virus Code(s): U07.1 - COVID-19; J12.89 - OTHER VIRAL PNEUMONIA Status: Acute (2) Acute respiratory failure with hypoxia Code(s): J96.01 - ACUTE RESPIRATORY FAILURE WITH HYPOXIA Status: Acute (3) HTN (hypertension) Code(s): I10 - ESSENTIAL (PRIMARY) HYPERTENSION Status: Chronic (4) DM2 (diabetes mellitus, type 2) Status: Chronic (5) Morbid obesity with BMI of 40.0-44.9, adult Code(s): E66.01 - MORBID (SEVERE) OBESITY DUE TO EXCESS CALORIES; Z68.41 - BODY MASS INDEX [BMI]40.0-44.9, ADULT Status: Chronic (6) CAD (coronary artery disease) Code(s): I25.10 - ATHSCL HEART DISEASE OF [place] CORONARY ARTERY W/O ANG PCTRS Status: Chronic - Plan Patient was admitted on April 25, 2020 for COVID-19 pneumonia. She received convalescent plasma and has completed remdesivir treatment. She was started on high flow oxygen due to hypoxia. Continue dexamethasone, zinc and vitamin C. Continue to monitor inflammatory markers. As needed Haldol for agitation, as needed Xanax for anxiety and as needed Ambien for insomnia.
[2020-05-01] MEDS: Zolpidem Tartrate 5 MG TAB PO PRN (19:55)
[2020-05-01] MEDS: Cefdinir 300 MG CAP PO SCH (19:58)
[2020-05-01] MEDS: Benzonatate 100 MG CAP PO PRN (19:59)
[2020-05-02] MEDS: Benzonatate 100 MG CAP PO PRN ×4 (02:01→19:59)
[2020-05-02] MEDS: ALPRAZolam 0.25 MG TAB PO PRN ×3 (02:01→19:59)
[2020-05-02] MEDS: HumaLOG 300 UNITS/3 ML VIAL SC PRN ×4 (04:51→21:02)
[2020-05-02] MEDS: Levothyroxine Sodium 25 MCG TAB PO SCH (04:52)
[2020-05-02] MEDS: hydrALAZINE 25 MG TAB PO SCH ×3 (08:26→19:59)
[2020-05-02] MEDS: metFORMIN 500 MG TAB PO SCH ×2 (08:26→15:53)
[2020-05-02] MEDS: Losartan 25 MG TAB PO SCH (08:27)
[2020-05-02] MEDS: Cefdinir 300 MG CAP PO SCH ×2 (08:27→19:59)
[2020-05-02] MEDS: Zinc Sulfate 220 MG CAP PO SCH (08:27)
[2020-05-02] MEDS: Dexamethasone 4 MG TAB PO SCH (08:27)
[2020-05-02] MEDS: Clopidogrel Bisulfate 75 MG TAB PO SCH (08:27)
[2020-05-02] MEDS: Azithromycin 250 MG TAB PO SCH (08:27)
[2020-05-02] MEDS: Enoxaparin Sodium 30 MG/0.3 ML SYRINGE SC SCH ×2 (08:28→20:00)
[2020-05-02] MEDS: Ascorbic Acid 500 mg Chewable Tablet PO SCH (08:28)
[2020-05-02 10:00] LABS: Anion Gap 17 mmol/L (10-20); BUN (Urea Nitrogen) 25 mg/dL (9.8-20.1); Calc. Creatinine Clearance 97 mL/min (70-130); Calcium 8.2 mg/dL (7.8-10.44); Carbon Dioxide 19 mmol/L (23-31); Chloride 116 mmol/L (98-107); Estimated GFR-MDRD 63; Glucose 285 mg/dL (83-110); Potassium 4.7 mmol/L (3.5-5.1); Sodium 147 mmol/L (136-145)
[2020-05-02 10:44] LABS: Hemoglobin 14.1 g/dL (12.0-16.0); Mean Corpuscular Hemoglobin 27.6 pg (27.0-31.0); Mean Corpuscular Volume 92.1 fL (78.0-98.0); Mean Platelet Volume 8.6 fL (7.4-10.4); Platelet Count 232 thou/uL (130-400); RBC Distribution Width 14.7 % (11.5-14.5); Red Blood Cell (RBC) Count 5.11 mill/uL (4.20-5.40); White Blood Cell (WBC) Count 12.8 thou/uL (4.8-10.8)
--- NOTE | 2020-05-02 13:32 | PDOC.HOSPP ---
- Subjective Encounter Date: 05/02/20 Encounter Time: 10:30 Subjective: CC: f/u for COVID The patient denies cough, chest pain. She is demanding to get out of bed and states she is tired of being in bed. Spoke to over the phone, he is okay with ativan prn as long as it doesn't make her drowsy . He asked if he can bring food because he is concerned the patient isn't eating as much as she should - Objective Vital Signs & Weight: Vital Signs (12 hours) Pulse Resp BP BP Pulse Ox 05/02/20 08:26 92 180/85 H 05/02/20 08:00 94 L 05/02/20 07:25 92 20 180/85 H 94 L 05/02/20 06:10 88 20 93 L 05/02/20 04:33 91 18 94 L Weight Weight 244 lb 11.41 oz Most Recent Monitor Data Heart Rate from ECG 61 I&O: 05/01/20 05/02/20 05/03/20 06:59 06:59 06:59 Intake Total 310 Output Total 250 Balance 60 Result Diagrams: 05/02/20 10:36 05/02/20 09:21 Additional Labs: Accuchecks 05/02/20 11:47 POC Glucose 255 H Hospitalist ROS - Review of Systems Constitutional: denies: fever, chills - Medication Medications: Active Medications Generic Name Dose Route Start Last Admin Trade Name Freq PRN Reason Stop Dose Admin Acetaminophen 650 mg 04/25/20 15:11 05/01/20 19:58 Acetaminophen 325 Mg Tab PO 650 mg Q4H PRN Administration Headache/Fever/Mild Pain (1-3) Alprazolam 0.25 mg 04/29/20 15:15 05/02/20 10:12 Alprazolam 0.25 Mg Tab PO 0.25 mg Q6H PRN Administration Anxiety Ascorbic Acid 1,000 mg 04/26/20 09:00 05/02/20 08:28 Ascorbic Acid 500 Mg Chewable Tablet PO 1,000 mg DAILY BON Administration Azithromycin 500 mg 05/02/20 09:00 05/02/20 08:27 Azithromycin 250 Mg Tab PO 500 mg DAILY BON Administration Benzonatate 100 mg 04/25/20 23:27 05/02/20 08:49 Benzonatate 100 Mg Cap PO 100 mg TIDPRN PRN Administration Cough Cefdinir 300 mg 05/01/20 21:00 05/02/20 08:27 Cefdinir 300 Mg Cap PO 300 mg BID BON Administration Clopidogrel Bisulfate 75 mg 04/27/20 09:00 05/02/20 08:27 Clopidogrel Bisulfate 75 Mg Tab PO 75 mg DAILY BON Administration Dexamethasone 6 mg 05/02/20 09:00 05/02/20 08:27 Dexamethasone 4 Mg Tab PO 6 mg DAILY BON Administration Enalaprilat 2.5 mg 04/26/20 20:00 04/26/20 20:00 Enalaprilat Dihydrate 1.25 Mg/Ml Vial SLOW IVP 2.5 mg Q6H PRN Administration SBP Greater Than 170 Enoxaparin Sodium 30 mg 04/25/20 21:00 05/02/20 08:28 Enoxaparin Sodium 30 Mg/0.3 Ml Syringe SC 30 mg 0900,2100 BON Administration Hydralazine HCl 75 mg 04/29/20 09:00 05/02/20 08:26 Hydralazine 25 Mg Tab PO 75 mg TID BON Administration Insulin Human Lispro 0 units 04/25/20 16:06 05/02/20 11:45 Humalog 300 Units/3 Ml Vial SC 4 units .MILD SLIDING SCALE PRN Administration Mild Correctional Scale Insulin Human Lispro 0 units 04/28/20 20:35 04/30/20 20:15 Humalog 300 Units/3 Ml Vial SC 3 unit .BEDTIME SLIDING SC PRN Administration Bedtime Correctional Scale Isosorbide Mononitrate 30 mg 05/02/20 09:00 05/02/20 10:12 Isosorbide Mononitrate Er 30 Mg Tab PO 30 mg DAILY BON Administration Labetalol HCl 10 mg 04/27/20 07:47 04/29/20 17:02 Labetalol Hcl 100 Mg/20 Ml Vial SLOW IVP 10 mg Q4H PRN Administration SBP Greater Than 180 Levothyroxine Sodium 25 mcg 04/27/20 06:00 05/02/20 04:52 Levothyroxine Sodium 25 Mcg Tab PO 25 mcg 0600 BON Administration Losartan Potassium 100 mg 04/27/20 09:00 05/02/20 08:27 Losartan 25 Mg Tab PO 100 mg DAILY BON Administration Melatonin 3 mg 04/29/20 00:03 04/29/20 00:09 Melatonin 3 Mg Tab PO 3 mg HS PRN Administration Insomnia Metformin HCl 500 mg 04/26/20 17:00 05/02/20 08:26 Metformin 500 Mg Tab PO 500 mg BID-WM BON Administration Ondansetron HCl 4 mg 04/25/20 15:11 04/30/20 04:58 Ondansetron Pf 4 Mg/2 Ml Vial IVP 4 mg Q6H PRN Administration Nausea/Vomiting Zinc Sulfate 220 mg 04/26/20 09:00 05/02/20 08:27 Zinc Sulfate 220 Mg Cap PO 220 mg DAILY BON Administration Zolpidem Tartrate 5 mg 04/29/20 18:46 04/30/20 20:15 Zolpidem Tartrate 5 Mg Tab PO 5 mg HSPRN PRN Administration Insomnia - Exam General Appearance: NAD, awake alert Eye: PERRL, anicteric sclera ENT: normocephalic atraumatic, no oropharyngeal lesions Neck: no JVD Heart: RRR, no murmur, no gallops, no rubs Respiratory: no wheezes, no rales, no ronchi Respiratory - other findings: diminished breath sounds Gastrointestinal: soft, non-tender, non-distended, normal bowel sounds Extremities: no cyanosis, no clubbing, no edema Skin: normal turgor, no lesions, no rashes Neurological: cranial nerve grossly intact, normal sensation to touch, no focal deficits, no new deficit Musculoskeletal: normal tone, normal strength, no muscle wasting Psychiatric: normal affect, normal behavior, A&O x 3 Hosp A/P - Plan Chest X ray: diffuse bilateral interstitial airspace disease This is a 75 year old female with history of diabetes, hypertension who pr esented with COVID one week prior who came in with hypoxia Acute hypoxic respiratory failure secondary to COVID pneumonia - continues to be on high flow oxygen - continue cefdinir and azithromycin - PT as tolerated Hypernatremia - sodium up to 147 Leukocytosis - WBC up to 12.8, possibly from steroids. Will monitor Hypertension - continue home meds, also added imdur due to BP 180 systolic Hypothyroidism - continue levothyroxine Diabetes -continue metformin
[2020-05-02] MEDS: Acetaminophen 325 MG TAB PO PRN (19:59)
[2020-05-02] MEDS: Zolpidem Tartrate 5 MG TAB PO PRN (19:59)
[2020-05-03] MEDS: Levothyroxine Sodium 25 MCG TAB PO SCH (05:11)
[2020-05-03] MEDS: HumaLOG 300 UNITS/3 ML VIAL SC PRN ×3 (05:18→17:03)
[2020-05-03] MEDS: Azithromycin 250 MG TAB PO SCH (07:53)
[2020-05-03] MEDS: Losartan 25 MG TAB PO SCH (07:53)
[2020-05-03] MEDS: Dexamethasone 4 MG TAB PO SCH (07:53)
[2020-05-03] MEDS: metFORMIN 500 MG TAB PO SCH ×2 (07:53→16:13)
[2020-05-03] MEDS: Ascorbic Acid 500 mg Chewable Tablet PO SCH (07:53)
[2020-05-03] MEDS: Enoxaparin Sodium 30 MG/0.3 ML SYRINGE SC SCH ×2 (07:53→20:08)
[2020-05-03] MEDS: Cefdinir 300 MG CAP PO SCH ×2 (07:53→20:11)
[2020-05-03] MEDS: Clopidogrel Bisulfate 75 MG TAB PO SCH (07:54)
[2020-05-03] MEDS: hydrALAZINE 25 MG TAB PO SCH ×3 (07:54→20:11)
[2020-05-03] MEDS: Zinc Sulfate 220 MG CAP PO SCH (07:54)
[2020-05-03] MEDS: Benzonatate 100 MG CAP PO PRN ×2 (10:03→20:11)
[2020-05-03] MEDS: Bisacodyl 5 MG TAB PO PRN (10:03)
[2020-05-03 10:24] LABS: Hemoglobin 13.4 g/dL (12.0-16.0); Mean Corpuscular HGB CONC 31.4 g/dL (32.0-36.0); Mean Corpuscular Hemoglobin 28.4 pg (27.0-31.0); Mean Corpuscular Volume 90.5 fL (78.0-98.0); Mean Platelet Volume 8.2 fL (7.4-10.4); Platelet Count 284 thou/uL (130-400); RBC Distribution Width 14.8 % (11.5-14.5); Red Blood Cell (RBC) Count 4.71 mill/uL (4.20-5.40); White Blood Cell (WBC) Count 15.4 thou/uL (4.8-10.8)
[2020-05-03 10:34] LABS: Anion Gap 17 mmol/L (10-20); BUN (Urea Nitrogen) 26 mg/dL (9.8-20.1); Calc. Creatinine Clearance 101 mL/min (70-130); Calcium 8.2 mg/dL (7.8-10.44); Carbon Dioxide 17 mmol/L (23-31); Chloride 112 mmol/L (98-107); Estimated GFR-MDRD 66; Glucose 366 mg/dL (83-110); Potassium 4.5 mmol/L (3.5-5.1); Sodium 141 mmol/L (136-145)
--- NOTE | 2020-05-03 19:29 | PDOC.HOSPP ---
- Subjective Encounter Date: 05/03/20 Encounter Time: 15:00 Subjective: F/u: COVID pneumonia The patient is much more calm today. Per nursing, she got up with PT but was only able to stand up for a little bit and her saturation dropped. Patient states she is trying to move around as best as she could She reports productive cough of yellow sputum - Objective Vital Signs & Weight: Vital Signs (12 hours) Temp Pulse Resp BP BP Pulse Ox 05/03/20 16:45 98.7 F 103 H 20 186/89 H 97 05/03/20 16:13 102 H 05/03/20 12:02 97.2 F L 102 H 20 171/91 H 96 05/03/20 08:00 98.3 F 94 20 160/82 H 95 05/03/20 07:54 94 160/82 H Weight Weight 244 lb 11.41 oz Most Recent Monitor Data Heart Rate from ECG 61 I&O: 05/02/20 05/03/20 05/04/20 06:59 06:59 06:59 Intake Total 600 650 Output Total 550 500 Balance 50 150 Result Diagrams: 05/03/20 10:15 05/03/20 10:15 Additional Labs: Accuchecks 05/03/20 05/03/20 16:36 11:30 POC Glucose 376 H 332 H Hospitalist ROS - Review of Systems Constitutional: denies: fever, chills - Medication Medications: Active Medications Generic Name Dose Route Start Last Admin Trade Name Freq PRN Reason Stop Dose Admin Acetaminophen 650 mg 04/25/20 15:11 05/02/20 19:59 Acetaminophen 325 Mg Tab PO 650 mg Q4H PRN Administration Headache/Fever/Mild Pain (1-3) Alprazolam 0.25 mg 04/29/20 15:15 05/02/20 19:59 Alprazolam 0.25 Mg Tab PO 0.25 mg Q6H PRN Administration Anxiety Ascorbic Acid 1,000 mg 04/26/20 09:00 05/03/20 07:53 Ascorbic Acid 500 Mg Chewable Tablet PO 1,000 mg DAILY BON Administration Azithromycin 500 mg 05/02/20 09:00 05/03/20 07:53 Azithromycin 250 Mg Tab PO 500 mg DAILY BON Administration Benzonatate 100 mg 04/25/20 23:27 05/03/20 10:03 Benzonatate 100 Mg Cap PO 100 mg TIDPRN PRN Administration Cough Bisacodyl 10 mg 04/25/20 15:11 05/03/20 10:03 Bisacodyl 5 Mg Tab PO 10 mg DAILYPRN PRN Administration Constipation Cefdinir 300 mg 05/01/20 21:00 05/03/20 07:53 Cefdinir 300 Mg Cap PO 300 mg BID BON Administration Clopidogrel Bisulfate 75 mg 04/27/20 09:00 05/03/20 07:54 Clopidogrel Bisulfate 75 Mg Tab PO 75 mg DAILY BON Administration Dexamethasone 6 mg 05/02/20 09:00 05/03/20 07:53 Dexamethasone 4 Mg Tab PO 6 mg DAILY BON Administration Enalaprilat 2.5 mg 04/26/20 20:00 04/26/20 20:00 Enalaprilat Dihydrate 1.25 Mg/Ml Vial SLOW IVP 2.5 mg Q6H PRN Administration SBP Greater Than 170 Enoxaparin Sodium 30 mg 04/25/20 21:00 05/03/20 07:53 Enoxaparin Sodium 30 Mg/0.3 Ml Syringe SC 30 mg 09,2099 BON Administration Hydralazine HCl 75 mg 04/29/20 09:00 05/03/20 16:13 Hydralazine 25 Mg Tab PO 75 mg TID BON Administration Insulin Human Lispro 0 units 04/25/20 16:06 05/03/20 17:03 Humalog 300 Units/3 Ml Vial SC 6 units .MILD SLIDING SCALE PRN Administration Mild Correctional Scale Insulin Human Lispro 0 units 04/28/20 20:35 05/02/20 21:02 Humalog 300 Units/3 Ml Vial SC 3 unit .BEDTIME SLIDING SC PRN Administration Bedtime Correctional Scale Isosorbide Mononitrate 30 mg 05/02/20 09:00 05/03/20 07:53 Isosorbide Mononitrate Er 30 Mg Tab PO 30 mg DAILY BON Administration Labetalol HCl 10 mg 04/27/20 07:47 04/29/20 17:02 Labetalol Hcl 100 Mg/20 Ml Vial SLOW IVP 10 mg Q4H PRN Administration SBP Greater Than 180 Levothyroxine Sodium 25 mcg 04/27/20 06:00 05/03/20 05:11 Levothyroxine Sodium 25 Mcg Tab PO 25 mcg 0600 BON Administration Losartan Potassium 100 mg 04/27/20 09:00 05/03/20 07:53 Losartan 25 Mg Tab PO 100 mg DAILY BON Administration Melatonin 3 mg 04/29/20 00:03 04/29/20 00:09 Melatonin 3 Mg Tab PO 3 mg HS PRN Administration Insomnia Metformin HCl 500 mg 04/26/20 17:00 05/03/20 16:13 Metformin 500 Mg Tab PO 500 mg BID-WM BON Administration Ondansetron HCl 4 mg 04/25/20 15:11 04/30/20 04:58 Ondansetron Pf 4 Mg/2 Ml Vial IVP 4 mg Q6H PRN Administration Nausea/Vomiting Zinc Sulfate 220 mg 04/26/20 09:00 05/03/20 07:54 Zinc Sulfate 220 Mg Cap PO 220 mg DAILY BON Administration Zolpidem Tartrate 5 mg 04/29/20 18:46 05/02/20 19:59 Zolpidem Tartrate 5 Mg Tab PO 5 mg HSPRN PRN Administration Insomnia - Exam General Appearance: NAD, awake alert Eye: PERRL, anicteric sclera ENT: normocephalic atraumatic, no oropharyngeal lesions Neck: no JVD Heart: RRR, no murmur, no gallops, no rubs Respiratory: CTAB, no wheezes, no rales, no ronchi Gastrointestinal: soft, non-tender, non-distended, normal bowel sounds Extremities: no cyanosis, no clubbing, no edema Skin: normal turgor, no lesions, no rashes Neurological: cranial nerve grossly intact, normal sensation to touch, no focal deficits, no new deficit Musculoskeletal: normal tone, normal strength, no muscle wasting Psychiatric: normal affect, normal behavior, A&O x 3, oriented to person Hosp A/P - Plan Chest X ray: diffuse bilateral interstitial airspace disease This is a 75 year old female with history of diabetes, hypertension who presented with COVID one week prior who came in with hypoxia Acute hypoxic respiratory failure secondary to COVID pneumonia - continues to be on high flow oxygen - continue cefdinir and azithromycin. Her WBC has increased, so will repeat chest X ray today - PT as tolerated Hypertension - uncontrolled -BP still 180, will increase imdur to 60 mg tomorrow Leukocytosis - WBC up to 15, will repeat chest Xray Diabetes -blood sugars 300. Continue metformin. Add lantus 10 units qhs Hypothyroidism - continue levothyroxine Hypernatremia - resolved
[2020-05-03] MEDS: Acetaminophen 325 MG TAB PO PRN (20:10)
[2020-05-03] MEDS: Insulin Glargine 10 UNITS in Pre-Filled Syringe 1 EACH SC SCH (20:10)
[2020-05-03] MEDS: Zolpidem Tartrate 5 MG TAB PO PRN (20:11)
[2020-05-03] MEDS: ALPRAZolam 0.25 MG TAB PO PRN (20:11)
--- NOTE | 2020-05-03 20:32 | RAD ---
PORTABLE CHEST: History: Covid pneumonia. Worsening leukocytosis Comparison: 04-25-2020 FINDINGS: The alveolar infiltrates are worsened as compared to the prior exam. Specifically, the changes of the right upper lung field and left midlung field. IMPRESSION: Worsening bilateral infiltrates. POS: OFF
[2020-05-03] MEDS ORDERED: Furosemide 40 MG/4 ML VIAL SLOW IVP SCH (21:00)
[2020-05-03] MEDS ORDERED: Furosemide 40 MG TAB PO SCH (21:30)
--- NOTE | 2020-05-03 21:31 | PDOC.EVN ---
Event Note - Event Note Event Note: Notified by RN, patient no longer has IV access. Has had issues with IV access and is now refusing any further attempts to place IV. Patient refusing IV meds. Had worsening infiltrates noted on CXR today and started on Zosyn and Lasix 40 mg IV x 1 ordered as well. I have given Lasix in PO form instead for now.
[2020-05-03] MEDS: Piperacillin/Tazobactam 3.375 GM in Sodium Chloride 0.9% 100 ML IVPB SCH (22:08)
[2020-05-04] MEDS: Levothyroxine Sodium 25 MCG TAB PO SCH (04:12)
[2020-05-04] MEDS: Piperacillin/Tazobactam 3.375 GM in Sodium Chloride 0.9% 100 ML IVPB SCH (04:50)
[2020-05-04 05:37] LABS: Hemoglobin 13.5 g/dL (12.0-16.0); Mean Corpuscular HGB CONC 32.5 g/dL (32.0-36.0); Mean Corpuscular Hemoglobin 28.3 pg (27.0-31.0); Mean Corpuscular Volume 86.9 fL (78.0-98.0); Mean Platelet Volume 9.3 fL (7.4-10.4); Platelet Count 320 thou/uL (130-400); RBC Distribution Width 14.8 % (11.5-14.5); Red Blood Cell (RBC) Count 4.77 mill/uL (4.20-5.40); White Blood Cell (WBC) Count 11.1 thou/uL (4.8-10.8)
[2020-05-04] MEDS: Enoxaparin Sodium 30 MG/0.3 ML SYRINGE SC SCH ×2 (08:10→20:18)
[2020-05-04] MEDS: Losartan 25 MG TAB PO SCH (08:11)
[2020-05-04] MEDS: hydrALAZINE 25 MG TAB PO SCH ×3 (08:11→20:17)
[2020-05-04] MEDS: Ascorbic Acid 500 mg Chewable Tablet PO SCH (08:11)
[2020-05-04] MEDS: Dexamethasone 4 MG TAB PO SCH (08:12)
[2020-05-04] MEDS: metFORMIN 500 MG TAB PO SCH ×2 (08:12→17:07)
[2020-05-04] MEDS: Clopidogrel Bisulfate 75 MG TAB PO SCH (08:12)
[2020-05-04] MEDS: Zinc Sulfate 220 MG CAP PO SCH (08:12)
[2020-05-04] MEDS ORDERED: Furosemide 40 MG TAB PO SCH (09:30)
[2020-05-04] MEDS ORDERED: Amoxicillin/Potassium Clav 875 MG TAB PO SCH (09:30)
[2020-05-04] MEDS: Acetaminophen 325 MG TAB PO PRN (10:01)
[2020-05-04] MEDS ORDERED: Ibuprofen 100 MG/5 ML UDCUP PO PRN (10:37)
[2020-05-04] MEDS ORDERED: Magnesium 2 GM/50 ML 2 GM in Premix Bag 1 BAG IVPB SCH (14:45)
--- NOTE | 2020-05-04 16:44 | PDOC.HOSPP ---
- Subjective Encounter Date: 05/04/20 Encounter Time: 08:00 Subjective: F/u: COVID, weakness Patient reports only a mild cough. Her main complaint is pain in her lower legs. She had some pain when I tried to lift up her legs initially but when I move them a second time they did not have any pain. Patient was seen by physical therapy. She desaturated into the upper 70s while sitting on the edge of the bed. He was only able to tolerate sitting on the edge of the bed for 3 minutes. Her sats improved to the 90s after she was laid supine. Discussed with sending the patient potentially to an LTAC facility given that she has been on high flow oxygen for a week now. I had a long telephone discussion with the daughter who is interested in looking to an outside facility. I did discuss with the patient that these facilities are not located in [facility] she may have to go to [place], [place], etc. Patient states she is not interested in going Patient lost IV access overnight and was unable to get IV Zosyn or IV Lasix. She is still refusing IV access at this time - Objective Vital Signs & Weight: Vital Signs (12 hours) Temp Pulse Resp BP Pulse Ox 05/04/20 15:14 98 05/04/20 08:11 103 H 05/04/20 08:00 97.9 F 94 20 172/108 H 95 Weight Weight 244 lb 11.41 oz Most Recent Monitor Data Heart Rate from ECG 61 I&O: 05/03/20 05/04/20 05/05/20 06:59 06:59 06:59 Intake Total 600 1300 Output Total 550 1900 Balance 50 -600 Result Diagrams: 05/04/20 05:12 05/03/20 10:15 Additional Labs: Accuchecks 05/04/20 05/03/20 05/02/20 12:44 20:26 15:37 POC Glucose 299 H 360 H 326 H Hospitalist ROS - Review of Systems Constitutional: denies: fever, chills - Medication Medications: Active Medications Generic Name Dose Route Start Last Admin Trade Name Freq PRN Reason Stop Dose Admin Acetaminophen 650 mg 04/25/20 15:11 05/04/20 10:01 Acetaminophen 325 Mg Tab PO 650 mg Q4H PRN Administration Headache/Fever/Mild Pain (1-3) Alprazolam 0.25 mg 04/29/20 15:15 05/03/20 20:11 Alprazolam 0.25 Mg Tab PO 0.25 mg Q6H PRN Administration Anxiety Ascorbic Acid 1,000 mg 04/26/20 09:00 05/04/20 08:11 Ascorbic Acid 500 Mg Chewable Tablet PO 1,000 mg DAILY BON Administration Benzonatate 100 mg 04/25/20 23:27 05/03/20 20:11 Benzonatate 100 Mg Cap PO 100 mg TIDPRN PRN Administration Cough Bisacodyl 10 mg 04/25/20 15:11 05/03/20 10:03 Bisacodyl 5 Mg Tab PO 10 mg DAILYPRN PRN Administration Constipation Clopidogrel Bisulfate 75 mg 04/27/20 09:00 05/04/20 08:12 Clopidogrel Bisulfate 75 Mg Tab PO 75 mg DAILY BON Administration Dexamethasone 6 mg 05/02/20 09:00 05/04/20 08:12 Dexamethasone 4 Mg Tab PO 6 mg DAILY BON Administration Enalaprilat 2.5 mg 04/26/20 20:00 04/26/20 20:00 Enalaprilat Dihydrate 1.25 Mg/Ml Vial SLOW IVP 2.5 mg Q6H PRN Administration SBP Greater Than 170 Enoxaparin Sodium 30 mg 04/25/20 21:00 05/04/20 08:10 Enoxaparin Sodium 30 Mg/0.3 Ml Syringe SC 30 mg 0900,2100 BON Administration Hydralazine HCl 75 mg 04/29/20 09:00 05/04/20 08:11 Hydralazine 25 Mg Tab PO 75 mg TID BON Administration Insulin Glargine 10 units/ 0.1 mls @ 0 mls/hr 05/03/20 21:00 05/03/20 20:10 Miscellaneous Medication SC 0.1 mls HS BON Administration Insulin Human Lispro 0 units 04/25/20 16:06 05/03/20 17:03 Humalog 300 Units/3 Ml Vial SC 6 units .MILD SLIDING SCALE PRN Administration Mild Correctional Scale Insulin Human Lispro 0 units 04/28/20 20:35 05/02/20 21:02 Humalog 300 Units/3 Ml Vial SC 3 unit .BEDTIME SLIDING SC PRN Administration Bedtime Correctional Scale Isosorbide Mononitrate 60 mg 05/04/20 09:00 05/04/20 08:12 Isosorbide Mononitrate Er 60 Mg Tab PO 60 mg DAILY BON Administration Labetalol HCl 10 mg 04/27/20 07:47 04/29/20 17:02 Labetalol Hcl 100 Mg/20 Ml Vial SLOW IVP 10 mg Q4H PRN Administration SBP Greater Than 180 Levothyroxine Sodium 25 mcg 04/27/20 06:00 05/04/20 04:12 Levothyroxine Sodium 25 Mcg Tab PO 25 mcg 0600 BON Administration Losartan Potassium 100 mg 04/27/20 09:00 05/04/20 08:11 Losartan 25 Mg Tab PO 100 mg DAILY BON Administration Melatonin 3 mg 04/29/20 00:03 04/29/20 00:09 Melatonin 3 Mg Tab PO 3 mg HS PRN Administration Insomnia Metformin HCl 500 mg 04/26/20 17:00 05/04/20 08:12 Metformin 500 Mg Tab PO 500 mg BID-WM BON Administration Ondansetron HCl 4 mg 04/25/20 15:11 04/30/20 04:58 Ondansetron Pf 4 Mg/2 Ml Vial IVP 4 mg Q6H PRN Administration Nausea/Vomiting Zinc Sulfate 220 mg 04/26/20 09:00 05/04/20 08:12 Zinc Sulfate 220 Mg Cap PO 220 mg DAILY BON Administration Zolpidem Tartrate 5 mg 04/29/20 18:46 05/03/20 20:11 Zolpidem Tartrate 5 Mg Tab PO 5 mg HSPRN PRN Administration Insomnia - Exam General Appearance: NAD, awake alert Eye: PERRL, anicteric sclera Neck: supple, no JVD Heart: RRR, no murmur, no gallops, no rubs Respiratory - other findings: Diminished breath sounds bilaterally Gastrointestinal: soft, non-tender, non-distended, normal bowel sounds Extremities: no cyanosis, no clubbing, 1+ LE edema Extremities - other findings: No significant swelling noted in her lower extremities. She has some tende Skin: normal turgor, no lesions, no rashes Neurological: cranial nerve grossly intact, normal sensation to touch, no weakness Hosp A/P - Plan Chest X ray: diffuse bilateral interstitial airspace disease Chest X ray 05/03: worsneing bilatearl infiltrates This is a 75 year old female with history of diabetes, hypertension who presented with COVID one week prior who came in with hypoxia Acute hypoxic respiratory failure secondary to COVID pneumonia vs bacterial pneumonia - continues to be on high flow oxygen. Repeat chest x-ray 05/03 showed worsening bilateral infiltrates. She was on oral Ceftin and azithromycin and attempted to be switched to IV Zosyn however she lost IV access. -We will switch antibiotics to oral Augmentin -We will start Lasix 40 mg p.o. daily. I do think she has a component of pulmonary edema on her x-ray. I will check a BNP tomorrow - she is on dexamethasone day 9. Will continue for one more day then discontinue -Case management consulted for possible LTAC placement. Family is interested in her going to another facility however patient is more reluctant Hypertension - uncontrolled -BP 180, increased imdur to 60 mg today. Repeat blood pressure Leukocytosis - WBC improved to 11.1, antibiotic switched to augmentin Diabetes -blood sugars 300. Continue metformin. Add lantus 10 units qhs Hypothyroidism - continue levothyroxine Hypernatremia - resolved
[2020-05-04] MEDS: ALPRAZolam 0.25 MG TAB PO PRN ×2 (17:06→22:10)
[2020-05-04] MEDS: HumaLOG 300 UNITS/3 ML VIAL SC PRN ×2 (17:35→20:32)
[2020-05-04] MEDS: Zolpidem Tartrate 5 MG TAB PO PRN (20:18)
[2020-05-04] MEDS: Amoxicillin/Potassium Clav 875 MG TAB PO SCH (20:18)
[2020-05-04] MEDS: Insulin Glargine 10 UNITS in Pre-Filled Syringe 1 EACH SC SCH (20:33)
[2020-05-05] MEDS: HumaLOG 300 UNITS/3 ML VIAL SC PRN ×4 (05:07→21:12)
[2020-05-05] MEDS: Levothyroxine Sodium 25 MCG TAB PO SCH (05:11)
[2020-05-05 06:03] LABS: Hemoglobin 13.4 g/dL (12.0-16.0); Mean Corpuscular HGB CONC 32.6 g/dL (32.0-36.0); Mean Corpuscular Hemoglobin 28.2 pg (27.0-31.0); Mean Corpuscular Volume 86.5 fL (78.0-98.0); Mean Platelet Volume 8.6 fL (7.4-10.4); Platelet Count 306 thou/uL (130-400); RBC Distribution Width 14.4 % (11.5-14.5); Red Blood Cell (RBC) Count 4.73 mill/uL (4.20-5.40); White Blood Cell (WBC) Count 10.8 thou/uL (4.8-10.8)
[2020-05-05 06:53] LABS: Calcium 8.9 mg/dL (7.8-10.44); Chloride 107 mmol/L (98-107); Potassium 4.1 mmol/L (3.5-5.1); Sodium 141 mmol/L (136-145)
[2020-05-05 06:54] LABS: Glucose 291 mg/dL (83-110)
[2020-05-05 06:55] LABS: Anion Gap 15 mmol/L (10-20); Carbon Dioxide 23 mmol/L (23-31)
[2020-05-05 06:57] LABS: Calc. Creatinine Clearance 106 mL/min (70-130); Estimated GFR-MDRD 70
[2020-05-05 06:58] LABS: BUN (Urea Nitrogen) 33 mg/dL (9.8-20.1)
[2020-05-05 06:59] LABS: Magnesium 1.7 mg/dL (1.6-2.6)
[2020-05-05] MEDS ORDERED: Furosemide 40 MG TAB PO SCH (07:30)
[2020-05-05] MEDS: Zinc Sulfate 220 MG CAP PO SCH (08:01)
[2020-05-05] MEDS: hydrALAZINE 25 MG TAB PO SCH ×3 (08:02→20:42)
[2020-05-05] MEDS: Amoxicillin/Potassium Clav 875 MG TAB PO SCH ×2 (08:02→20:42)
[2020-05-05] MEDS: Losartan 25 MG TAB PO SCH (08:02)
[2020-05-05] MEDS: metFORMIN 500 MG TAB PO SCH ×2 (08:02→17:39)
[2020-05-05] MEDS: Magnesium Oxide 400 MG TAB PO SCH (08:03)
[2020-05-05] MEDS: Clopidogrel Bisulfate 75 MG TAB PO SCH (08:03)
[2020-05-05] MEDS: Dexamethasone 4 MG TAB PO SCH (08:03)
[2020-05-05] MEDS: Ascorbic Acid 500 mg Chewable Tablet PO SCH (08:03)
[2020-05-05] MEDS: Enoxaparin Sodium 30 MG/0.3 ML SYRINGE SC SCH ×2 (08:04→20:43)
--- NOTE | 2020-05-05 16:45 | PDOC.HOSPP ---
- Subjective Encounter Date: 05/05/20 Encounter Time: 15:00 Subjective: F/u: COVID pneumonia The patient states she feels a lot better. She was able to stand up today and her oxygen saturation only dropped to 85%. She appears to be very happy today and more optimistic. She continues to have mild productive cough of yinka brown sputum. Discussed this may be from pulmonary edema vs pneumonia She has urinated significantly per nursing staff - Objective Vital Signs & Weight: Vital Signs (12 hours) Temp Pulse Resp BP Pulse Ox 05/05/20 08:02 83 05/05/20 08:01 93 L 05/05/20 08:00 98.4 F 94 18 161/84 H 95 05/05/20 04:50 97.6 F 83 18 155/85 H 98 Weight Weight 244 lb 11.41 oz Most Recent Monitor Data Heart Rate from ECG 61 I&O: 05/04/20 05/05/20 05/06/20 06:59 06:59 06:59 Intake Total 1300 400 Output Total 1900 800 Balance -600 -400 Result Diagrams: 05/05/20 05:35 05/05/20 05:35 Additional Labs: Accuchecks 05/05/20 05/05/20 05/04/20 12:49 04:40 20:14 POC Glucose 318 H 244 H 387 H 05/04/20 17:10 POC Glucose 364 H Hospitalist ROS - Review of Systems Constitutional: denies: fever, chills - Medication Medications: Active Medications Generic Name Dose Route Start Last Admin Trade Name Freq PRN Reason Stop Dose Admin Acetaminophen 650 mg 04/25/20 15:11 05/04/20 10:01 Acetaminophen 325 Mg Tab PO 650 mg Q4H PRN Administration Headache/Fever/Mild Pain (1-3) Alprazolam 0.25 mg 04/29/20 15:15 05/04/20 22:10 Alprazolam 0.25 Mg Tab PO 0.25 mg Q6H PRN Administration Anxiety Amoxicillin/Clavulanate Potassium 875 mg 05/04/20 21:00 05/05/20 08:02 Amoxicillin/Potassium Clav 875 Mg Tab PO 875 mg Q12HR BON Administration Ascorbic Acid 1,000 mg 04/26/20 09:00 05/05/20 08:03 Ascorbic Acid 500 Mg Chewable Tablet PO 1,000 mg DAILY BON Administration Benzonatate 100 mg 04/25/20 23:27 05/03/20 20:11 Benzonatate 100 Mg Cap PO 100 mg TIDPRN PRN Administration Cough Bisacodyl 10 mg 04/25/20 15:11 05/03/20 10:03 Bisacodyl 5 Mg Tab PO 10 mg DAILYPRN PRN Administration Constipation Clopidogrel Bisulfate 75 mg 04/27/20 09:00 05/05/20 08:03 Clopidogrel Bisulfate 75 Mg Tab PO 75 mg DAILY BON Administration Dexamethasone 6 mg 05/02/20 09:00 05/05/20 08:03 Dexamethasone 4 Mg Tab PO 6 mg DAILY BON Administration Enalaprilat 2.5 mg 04/26/20 20:00 04/26/20 20:00 Enalaprilat Dihydrate 1.25 Mg/Ml Vial SLOW IVP 2.5 mg Q6H PRN Administration SBP Greater Than 170 Enoxaparin Sodium 30 mg 04/25/20 21:00 05/05/20 08:04 Enoxaparin Sodium 30 Mg/0.3 Ml Syringe SC 30 mg 09,2099 BON Administration Furosemide 40 mg 05/05/20 07:30 05/05/20 08:01 Furosemide 40 Mg Tab PO 40 mg DAILY-AC BON Administration Hydralazine HCl 75 mg 04/29/20 09:00 05/05/20 08:02 Hydralazine 25 Mg Tab PO 75 mg TID BON Administration Insulin Glargine 10 units/ 0.1 mls @ 0 mls/hr 05/03/20 21:00 05/04/20 20:33 Miscellaneous Medication SC 0.1 mls HS BON Administration Insulin Human Lispro 0 units 04/25/20 16:06 05/05/20 13:04 Humalog 300 Units/3 Ml Vial SC 5 units .MILD SLIDING SCALE PRN Administration Mild Correctional Scale Insulin Human Lispro 0 units 04/28/20 20:35 05/04/20 20:32 Humalog 300 Units/3 Ml Vial SC 5 unit .BEDTIME SLIDING SC PRN Administration Bedtime Correctional Scale Isosorbide Mononitrate 60 mg 05/04/20 09:00 05/05/20 08:03 Isosorbide Mononitrate Er 60 Mg Tab PO 60 mg DAILY BON Administration Labetalol HCl 10 mg 04/27/20 07:47 04/29/20 17:02 Labetalol Hcl 100 Mg/20 Ml Vial SLOW IVP 10 mg Q4H PRN Administration SBP Greater Than 180 Levothyroxine Sodium 25 mcg 04/27/20 06:00 05/05/20 05:11 Levothyroxine Sodium 25 Mcg Tab PO 25 mcg 0600 BON Administration Losartan Potassium 100 mg 04/27/20 09:00 05/05/20 08:02 Losartan 25 Mg Tab PO 100 mg DAILY BON Administration Magnesium Oxide 800 mg 05/05/20 09:00 05/05/20 08:03 Magnesium Oxide 400 Mg Tab PO 800 mg DAILY BON Administration Melatonin 3 mg 04/29/20 00:03 04/29/20 00:09 Melatonin 3 Mg Tab PO 3 mg HS PRN Administration Insomnia Metformin HCl 500 mg 04/26/20 17:00 05/05/20 08:02 Metformin 500 Mg Tab PO 500 mg BID-WM BON Administration Ondansetron HCl 4 mg 04/25/20 15:11 04/30/20 04:58 Ondansetron Pf 4 Mg/2 Ml Vial IVP 4 mg Q6H PRN Administration Nausea/Vomiting Zinc Sulfate 220 mg 04/26/20 09:00 05/05/20 08:01 Zinc Sulfate 220 Mg Cap PO 220 mg DAILY BON Administration Zolpidem Tartrate 5 mg 04/29/20 18:46 05/04/20 20:18 Zolpidem Tartrate 5 Mg Tab PO 5 mg HSPRN PRN Administration Insomnia - Exam General Appearance: NAD, awake alert Eye: PERRL, anicteric sclera ENT: normocephalic atraumatic Neck: no JVD Heart: RRR, no murmur, no gallops, no rubs Respiratory - other findings: diminished breath sounds bilaterally Gastrointestinal: soft, non-tender, non-distended, normal bowel sounds, no splenomegaly Extremities: no cyanosis, no clubbing, no edema Skin: normal turgor, no lesions, no rashes Neurological: cranial nerve grossly intact, normal sensation to touch, no weakness Musculoskeletal: normal tone, normal strength, no muscle wasting Psychiatric: normal affect, normal behavior, A&O x 3, oriented to person Hosp A/P - Plan Chest X ray: diffuse bilateral interstitial airspace disease Chest X ray 05/03: worsening bilateral infiltrates This is a 75 year old female with history of diabetes, hypertension who presented with COVID one week prior who came in with hypoxia Acute hypoxic respiratory failure secondary to COVID pneumonia vs bacterial pneumonia vs pulmonary edema - symptomatically patient appears to be improving. Repeat chest x-ray 05/03 showed worsening bilateral infiltrates, could be pneumonia vs pulmonary edema. She was on oral Ceftin and azithromycin and attempted to be switched to IV Zosyn however she lost IV access 05/04 and midline was placed. She was started on oral augmentin 05/04. Sputum culture showing normal respiratory cristian - WBC has improved to 10.8. Continue augmentin - I will switch oral lasix to IV lasix to hopefully achieve faster diuresis. Will repeat chest X ray tomorrow. Wean oxygen saturation to 92% - she is on dexamethasone and has completed ten days, will discontinue - case management has been consulted and is looking into [facility] vs [facility] Hypertension - uncontrolled -BP improved to 160. Continue IV diuresis, imdur 60 mg Diabetes -blood sugars 300. Continue metformin. Increase lantus to 12 units - will discontinue steroids Hypothyroidism - continue levothyroxine Hypernatremia - resolved Dispo: continue IV diuretics, looking into rehab options , continue to wean oxygen
[2020-05-05] MEDS ORDERED: Furosemide 40 MG/4 ML VIAL SLOW IVP SCH (18:00)
[2020-05-05] MEDS: ALPRAZolam 0.25 MG TAB PO PRN (20:42)
[2020-05-05] MEDS: Zolpidem Tartrate 5 MG TAB PO PRN (20:42)
[2020-05-05] MEDS ORDERED: Insulin Glargine 10 UNITS in Pre-Filled Syringe 1 EACH SC SCH (21:00)
[2020-05-06] MEDS: Levothyroxine Sodium 25 MCG TAB PO SCH (05:01)
[2020-05-06] MEDS ORDERED: Furosemide 40 MG/4 ML VIAL SLOW IVP SCH (06:00)
[2020-05-06] MEDS: HumaLOG 300 UNITS/3 ML VIAL SC PRN ×3 (06:00→17:51)
--- NOTE | 2020-05-06 07:59 | RAD ---
XR Chest 1 View Portable HISTORY: COVID pneumonia. Pulmonary edema COMPARISON: 05/03/2020 FINDINGS: Diffuse alveolar interstitial infiltrates are again seen in the lung monahan bilaterally and remain stable. No pneumothoraces or pleural effusions is noted. The heart size is stable. IMPRESSION: Stable exam
[2020-05-06 08:04] LABS: Anion Gap 16 mmol/L (10-20); BUN (Urea Nitrogen) 35 mg/dL (9.8-20.1); Calc. Creatinine Clearance 87 mL/min (70-130); Calcium 9.1 mg/dL (7.8-10.44); Carbon Dioxide 24 mmol/L (23-31); Chloride 103 mmol/L (98-107); Estimated GFR-MDRD 55; Glucose 250 mg/dL (83-110); Potassium 3.8 mmol/L (3.5-5.1); Sodium 139 mmol/L (136-145)
[2020-05-06] MEDS: Enoxaparin Sodium 30 MG/0.3 ML SYRINGE SC SCH ×2 (08:31→21:18)
[2020-05-06] MEDS: Zinc Sulfate 220 MG CAP PO SCH (08:32)
[2020-05-06] MEDS: Ascorbic Acid 500 mg Chewable Tablet PO SCH (08:32)
[2020-05-06] MEDS: Amoxicillin/Potassium Clav 875 MG TAB PO SCH (08:32)
[2020-05-06] MEDS: Magnesium Oxide 400 MG TAB PO SCH (08:32)
[2020-05-06] MEDS: Losartan 25 MG TAB PO SCH (08:33)
[2020-05-06] MEDS: hydrALAZINE 25 MG TAB PO SCH ×4 (08:33→21:18)
[2020-05-06] MEDS: metFORMIN 500 MG TAB PO SCH ×2 (08:34→17:52)
[2020-05-06] MEDS: Clopidogrel Bisulfate 75 MG TAB PO SCH (08:34)
[2020-05-06 10:03] VITALS: BMI 44.7
--- NOTE | 2020-05-06 12:29 | PDOC.HOSPP ---
- Subjective Encounter Date: 05/06/20 Encounter Time: 12:29 Subjective: The patient states she was feeling better yesterday and is now feeling worst again. She reports that she keeps feeling dizzy and she can't catch her breath. She did say that she was able to sit on the edge of the bed with PT, but not for long. SHe states her saturations dropped but is not sure what it went down to She still coughed up some dark brown sputum - Objective Vital Signs & Weight: Vital Signs (12 hours) Temp Pulse Resp BP Pulse Ox 05/06/20 08:33 92 05/06/20 08:00 98.2 F 92 19 122/76 94 L 05/06/20 05:00 97.8 F 92 18 122/76 99 Weight Admit Weight 244 lb 11.41 oz Weight 244 lb 11.41 oz Most Recent Monitor Data Heart Rate from ECG 61 I&O: 05/05/20 05/06/20 05/07/20 06:59 06:59 06:59 Intake Total 400 Output Total 800 Balance -400 Result Diagrams: 05/05/20 05:35 05/06/20 07:27 Additional Labs: Accuchecks 05/06/20 05/06/20 05/05/20 11:53 05:05 20:46 POC Glucose 241 H 283 H 357 H 05/05/20 05/05/20 17:46 12:49 POC Glucose 323 H 318 H Hospitalist ROS - Review of Systems Constitutional: denies: fever, chills Gastrointestinal: reports: nausea, abdominal pain - Medication Medications: Active Medications Generic Name Dose Route Start Last Admin Trade Name Luisq PRN Reason Stop Dose Admin Acetaminophen 650 mg 04/25/20 15:11 05/04/20 10:01 Acetaminophen 325 Mg Tab PO 650 mg Q4H PRN Administration Headache/Fever/Mild Pain (1-3) Alprazolam 0.25 mg 04/29/20 15:15 05/05/20 20:42 Alprazolam 0.25 Mg Tab PO 0.25 mg Q6H PRN Administration Anxiety Ascorbic Acid 1,000 mg 04/26/20 09:00 05/06/20 08:32 Ascorbic Acid 500 Mg Chewable Tablet PO 1,000 mg DAILY BON Administration Benzonatate 100 mg 04/25/20 23:27 10/25/20 20:11 Benzonatate 100 Mg Cap PO 100 mg TIDPRN PRN Administration Cough Bisacodyl 10 mg 04/25/20 15:11 05/03/20 10:03 Bisacodyl 5 Mg Tab PO 10 mg DAILYPRN PRN Administration Constipation Clopidogrel Bisulfate 75 mg 04/27/20 09:00 05/06/20 08:34 Clopidogrel Bisulfate 75 Mg Tab PO 75 mg DAILY BON Administration Enalaprilat 2.5 mg 04/26/20 20:00 04/26/20 20:00 Enalaprilat Dihydrate 1.25 Mg/Ml Vial SLOW IVP 2.5 mg Q6H PRN Administration SBP Greater Than 170 Enoxaparin Sodium 30 mg 04/25/20 21:00 05/06/20 08:31 Enoxaparin Sodium 30 Mg/0.3 Ml Syringe SC 30 mg 0900,2100 BON Administration Hydralazine HCl 75 mg 04/29/20 09:00 05/06/20 08:33 Hydralazine 25 Mg Tab PO 75 mg TID BON Administration Insulin Glargine 10 units/ 0.1 mls @ 0 mls/hr 05/05/20 21:00 05/05/20 21:12 Miscellaneous Medication SC 0.1 mls HS BON Administration Insulin Human Lispro 0 units 04/25/20 16:06 05/06/20 06:00 Humalog 300 Units/3 Ml Vial SC 4 units .MILD SLIDING SCALE PRN Administration Mild Correctional Scale Insulin Human Lispro 0 units 04/28/20 20:35 05/05/20 21:12 Humalog 300 Units/3 Ml Vial SC 5 unit .BEDTIME SLIDING SC PRN Administration Bedtime Correctional Scale Isosorbide Mononitrate 60 mg 05/04/20 09:00 05/06/20 08:34 Isosorbide Mononitrate Er 60 Mg Tab PO 60 mg DAILY BON Administration Labetalol HCl 10 mg 04/27/20 07:47 04/29/20 17:02 Labetalol Hcl 100 Mg/20 Ml Vial SLOW IVP 10 mg Q4H PRN Administration SBP Greater Than 180 Levothyroxine Sodium 25 mcg 04/27/20 06:00 05/06/20 05:01 Levothyroxine Sodium 25 Mcg Tab PO 25 mcg 0600 BON Administration Losartan Potassium 100 mg 04/27/20 09:00 05/06/20 08:33 Losartan 25 Mg Tab PO 100 mg DAILY BON Administration Magnesium Oxide 800 mg 05/05/20 09:00 05/06/20 08:32 Magnesium Oxide 400 Mg Tab PO 800 mg DAILY BON Administration Melatonin 3 mg 04/29/20 00:03 04/29/20 00:09 Melatonin 3 Mg Tab PO 3 mg HS PRN Administration Insomnia Metformin HCl 500 mg 04/26/20 17:00 05/06/20 08:34 Metformin 500 Mg Tab PO 500 mg BID-WM BON Administration Ondansetron HCl 4 mg 04/25/20 15:11 04/30/20 04:58 Ondansetron Pf 4 Mg/2 Ml Vial IVP 4 mg Q6H PRN Administration Nausea/Vomiting Zinc Sulfate 220 mg 04/26/20 09:00 05/06/20 08:32 Zinc Sulfate 220 Mg Cap PO 220 mg DAILY BON Administration Zolpidem Tartrate 5 mg 04/29/20 18:46 05/05/20 20:42 Zolpidem Tartrate 5 Mg Tab PO 5 mg HSPRN PRN Administration Insomnia - Exam General Appearance: NAD, awake alert General - other findings: morbidly obese Eye: PERRL, anicteric sclera ENT: normocephalic atraumatic, no oropharyngeal lesions Neck: no JVD Heart: RRR, no murmur, no gallops, no rubs Respiratory - other findings: diminished breath sounds bilaterally Gastrointestinal: soft, non-tender, non-distended Extremities: no cyanosis, no clubbing, no edema Skin: normal turgor, no lesions, no rashes Neurological: cranial nerve grossly intact, normal sensation to touch, no weakness Musculoskeletal: normal tone, normal strength, no muscle wasting Hosp A/P - Plan Chest X ray: diffuse bilateral interstitial airspace disease Chest X ray 05/03: worsening bilateral infiltrates Chest x ray 05/06: stable multifocal infiltrates This is a 75 year old female with history of diabetes, hypertension who presented with COVID one week prior who came in with hypoxia Acute hypoxic respiratory failure secondary to COVID pneumonia vs bacterial pneumonia vs pulmonary edema - patient improved yesterday but states she feels worst again today. Oxygen saturation was dropping to 70-85% on high flow nasal cannula - will check stat ABG - she was on oral ceftin and azithromycin. Switched to augmentin 05/04 when she lost IV access. She has mid-line in place, so will switch to IV zosyn - will discontinue lasix due to self reported dizziness - dexamethasone received ten days of dexamethasone, discontinued 05/05 - will consider transfer to CCU pending ABG results Dizziness - BP improved to 122, but baseline is very high - will check orthostatics Hypertension - controlled - continue current meds Diabetes -blood sugars 300. Increase lantus to 14 units Hypothyroidism - continue levothyroxine Hypernatremia - resolved
[2020-05-06 12:39] LABS: Actual Bicarbonate (HCO3a) 28.1 mEq/L (22-28); Base Excess (BEa) 5.4 mEq/L (-2.0 to +3.0); CO2 Tension 34.9 mmHg (35.0-45.0); Calcium, Ionized (arterial) 1.15 mmol/L (1.12-1.30); Carboxyhemoglobin (COHb) 0.5 gm% (0.0-3.0); Hemoglobin (Hb) 14.3 g/dL (12.0-16.0); Potassium - ABG Lab 3.45 mmol/L (3.70-5.30); pH, Arterial 7.52 (7.35-7.45)
[2020-05-06 12:42] LABS: O2 Tension (PaO2), arterial 55.9 mmHg (> 70.0)
[2020-05-06 12:43] LABS: ALV-art Gradient 299.755 mmHg (0-20)
[2020-05-06 13:57] LABS: Hemoglobin 14.6 g/dL (12.0-16.0); Mean Corpuscular HGB CONC 31.8 g/dL (32.0-36.0); Mean Corpuscular Hemoglobin 28.1 pg (27.0-31.0); Mean Corpuscular Volume 88.3 fL (78.0-98.0); Mean Platelet Volume 8.9 fL (7.4-10.4); Platelet Count 318 thou/uL (130-400); RBC Distribution Width 14.6 % (11.5-14.5); Red Blood Cell (RBC) Count 5.22 mill/uL (4.20-5.40); White Blood Cell (WBC) Count 17.9 thou/uL (4.8-10.8)
[2020-05-06] MEDS: Piperacillin/Tazobactam 3.375 GM in Sodium Chloride 0.9% 100 ML IVPB SCH ×2 (14:42→21:17)
[2020-05-06] MEDS: Zolpidem Tartrate 5 MG TAB PO PRN (21:18)
[2020-05-06] MEDS: Insulin Glargine 14 UNITS in Pre-Filled Syringe 1 EACH SC SCH (21:19)
[2020-05-06] MEDS: ALPRAZolam 0.25 MG TAB PO PRN (21:22)
[2020-05-07] MEDS: Piperacillin/Tazobactam 3.375 GM in Sodium Chloride 0.9% 100 ML IVPB SCH ×4 (02:14→16:32)
[2020-05-07] MEDS: Bisacodyl 5 MG TAB PO PRN (04:43)
[2020-05-07] MEDS: Levothyroxine Sodium 25 MCG TAB PO SCH (05:12)
[2020-05-07] MEDS: metFORMIN 500 MG TAB PO SCH ×2 (08:20→16:32)
[2020-05-07] MEDS: Losartan 25 MG TAB PO SCH (08:22)
[2020-05-07] MEDS: Zinc Sulfate 220 MG CAP PO SCH (08:22)
[2020-05-07] MEDS: Ascorbic Acid 500 mg Chewable Tablet PO SCH (08:22)
[2020-05-07] MEDS: Magnesium Oxide 400 MG TAB PO SCH (08:23)
[2020-05-07] MEDS: hydrALAZINE 25 MG TAB PO SCH ×4 (08:23→20:58)
[2020-05-07] MEDS: Enoxaparin Sodium 30 MG/0.3 ML SYRINGE SC SCH ×2 (08:24→20:57)
[2020-05-07] MEDS: Clopidogrel Bisulfate 75 MG TAB PO SCH (08:24)
[2020-05-07] MEDS: HumaLOG 300 UNITS/3 ML VIAL SC PRN ×2 (13:18→16:00)
[2020-05-07 17:25] LABS: Hemoglobin 14.5 g/dL (12.0-16.0); Mean Corpuscular HGB CONC 33.3 g/dL (32.0-36.0); Mean Corpuscular Hemoglobin 28.5 pg (27.0-31.0); Mean Corpuscular Volume 85.8 fL (78.0-98.0); Mean Platelet Volume 9.2 fL (7.4-10.4); Platelet Count 236 thou/uL (130-400); RBC Distribution Width 14.6 % (11.5-14.5); Red Blood Cell (RBC) Count 5.09 mill/uL (4.20-5.40); White Blood Cell (WBC) Count 11.2 thou/uL (4.8-10.8)
[2020-05-07 17:38] LABS: Anion Gap 15 mmol/L (10-20); BUN (Urea Nitrogen) 42 mg/dL (9.8-20.1); Calc. Creatinine Clearance 77 mL/min (70-130); Calcium 8.3 mg/dL (7.8-10.44); Carbon Dioxide 26 mmol/L (23-31); Chloride 103 mmol/L (98-107); Estimated GFR-MDRD 48; Glucose 222 mg/dL (83-110); Potassium 3.6 mmol/L (3.5-5.1); Sodium 140 mmol/L (136-145)
--- NOTE | 2020-05-07 18:02 | PDOC.HOSPP ---
- Subjective Encounter Date: 05/07/20 Encounter Time: 18:00 Subjective: The patient states she has improved. She is no longer dizzy. She states her productive cough has resolved. SHe is still weak mostly in the lower legs. SHe had some leg exercises done with physical therapy She stood up with them today but desaturated. Patient is very eager to leave the hospital soon - Objective Vital Signs & Weight: Vital Signs (12 hours) Temp Pulse Resp BP BP BP Pulse Ox 05/07/20 15:12 104 H 100/63 05/07/20 12:26 98.6 F 104 H 20 95/60 106/66 95 05/07/20 08:23 98 05/07/20 08:00 96 Weight Admit Weight 244 lb 11.41 oz Weight 244 lb 11.41 oz Most Recent Monitor Data Heart Rate from ECG 61 I&O: 05/06/20 05/07/20 05/08/20 06:59 06:59 06:59 Intake Total 600 Output Total 350 Balance 250 Result Diagrams: 05/07/20 17:16 05/07/20 17:15 Additional Labs: Accuchecks 05/07/20 05/06/20 04:20 21:23 POC Glucose 186 H 197 H Hospitalist ROS - Review of Systems Constitutional: denies: fever, chills - Medication Medications: Active Medications Generic Name Dose Route Start Last Admin Trade Name Freq PRN Reason Stop Dose Admin Acetaminophen 650 mg 04/25/20 15:11 05/04/20 10:01 Acetaminophen 325 Mg Tab PO 650 mg Q4H PRN Administration Headache/Fever/Mild Pain (1-3) Alprazolam 0.25 mg 04/29/20 15:15 05/06/20 21:22 Alprazolam 0.25 Mg Tab PO 0.25 mg Q6H PRN Administration Anxiety Ascorbic Acid 1,000 mg 04/26/20 09:00 05/07/20 08:22 Ascorbic Acid 500 Mg Chewable Tablet PO 1,000 mg DAILY BON Administration Benzonatate 100 mg 04/25/20 23:27 05/03/20 20:11 Benzonatate 100 Mg Cap PO 100 mg TIDPRN PRN Administration Cough Bisacodyl 10 mg 04/25/20 15:11 05/07/20 04:43 Bisacodyl 5 Mg Tab PO 10 mg DAILYPRN PRN Administration Constipation Clopidogrel Bisulfate 75 mg 04/27/20 09:00 05/07/20 08:24 Clopidogrel Bisulfate 75 Mg Tab PO 75 mg DAILY BON Administration Enalaprilat 2.5 mg 04/26/20 20:00 04/26/20 20:00 Enalaprilat Dihydrate 1.25 Mg/Ml Vial SLOW IVP 2.5 mg Q6H PRN Administration SBP Greater Than 170 Enoxaparin Sodium 30 mg 04/25/20 21:00 05/07/20 08:24 Enoxaparin Sodium 30 Mg/0.3 Ml Syringe SC 30 mg 0900,2100 BON Administration Hydralazine HCl 75 mg 04/29/20 09:00 05/07/20 15:12 Hydralazine 25 Mg Tab PO Not Given TID [facility] Insulin Glargine 14 units/ 0.14 mls @ 0 mls/hr 05/06/20 21:00 05/06/20 21:19 Miscellaneous Medication SC 0.14 mls HS BON Administration Piperacillin Sod/Tazobactam 100 mls @ 200 mls/hr 05/07/20 18:00 05/07/20 16:32 Sod 3.375 gm/ Sodium Chloride IVPB 100 mls Q6HR BON Administration Insulin Human Lispro 0 units 04/25/20 16:06 05/07/20 13:18 Humalog 300 Units/3 Ml Vial SC 3 units .MILD SLIDING SCALE PRN Administration Mild Correctional Scale Insulin Human Lispro 0 units 04/28/20 20:35 05/05/20 21:12 Humalog 300 Units/3 Ml Vial SC 5 unit .BEDTIME SLIDING SC PRN Administration Bedtime Correctional Scale Isosorbide Mononitrate 60 mg 05/04/20 09:00 05/07/20 08:24 Isosorbide Mononitrate Er 60 Mg Tab PO 60 mg DAILY BON Administration Labetalol HCl 10 mg 04/27/20 07:47 04/29/20 17:02 Labetalol Hcl 100 Mg/20 Ml Vial SLOW IVP 10 mg Q4H PRN Administration SBP Greater Than 180 Levothyroxine Sodium 25 mcg 04/27/20 06:00 05/07/20 05:12 Levothyroxine Sodium 25 Mcg Tab PO 25 mcg 0600 OBN Administration Losartan Potassium 100 mg 04/27/20 09:00 05/07/20 08:22 Losartan 25 Mg Tab PO 100 mg DAILY BON Administration Magnesium Oxide 800 mg 05/05/20 09:00 05/07/20 08:23 Magnesium Oxide 400 Mg Tab PO 800 mg DAILY BON Administration Melatonin 3 mg 04/29/20 00:03 04/29/20 00:09 Melatonin 3 Mg Tab PO 3 mg HS PRN Administration Insomnia Metformin HCl 500 mg 04/26/20 17:00 05/07/20 16:32 Metformin 500 Mg Tab PO 500 mg BID-WM BON Administration Ondansetron HCl 4 mg 04/25/20 15:11 04/30/20 04:58 Ondansetron Pf 4 Mg/2 Ml Vial IVP 4 mg Q6H PRN Administration Nausea/Vomiting Zinc Sulfate 220 mg 04/26/20 09:00 05/07/20 08:22 Zinc Sulfate 220 Mg Cap PO 220 mg DAILY BON Administration Zolpidem Tartrate 5 mg 04/29/20 18:46 05/06/20 21:18 Zolpidem Tartrate 5 Mg Tab PO 5 mg HSPRN PRN Administration Insomnia - Exam General Appearance: NAD, awake alert Eye: PERRL ENT: normocephalic atraumatic, no oropharyngeal lesions Neck: no JVD Heart: RRR, no murmur, no gallops, no rubs Respiratory - other findings: diminished breath sounds bilaterally Gastrointestinal: soft, non-tender, non-distended, normal bowel sounds Extremities: no cyanosis, no clubbing, no edema Skin: normal turgor, no lesions, no rashes Neurological: cranial nerve grossly intact, normal sensation to touch, no weakness Hosp A/P - Plan Chest X ray: diffuse bilateral interstitial airspace disease Chest X ray 05/03: worsening bilateral infiltrates Chest x ray 05/06: stable multifocal infiltrates This is a 75 year old female with history of diabetes, hypertension who presented with COVID one week prior who came in with hypoxia Acute hypoxic respiratory failure secondary to COVID pneumonia vs bacterial pneumonia vs pulmonary edema - patient improved yesterday but states she feels worst again today. Oxygen saturation was dropping to 70-85% on high flow nasal cannula. Her FIO2 was increased - Switched to augmentin 05/04, but then lost IV access. SHe was switched to zosyn 05/06. Will continue for now given symptomatic improvement - lasix discontinued 05/06 due to dizziness - discontinued dexamethasone, completed ten day course Dizziness - resolved Hypertension - controlled - continue current meds Diabetes -fasting blood sugar 186. Continue lantus 14 units Hypothyroidism - continue levothyroxine Hypernatremia - resolved
[2020-05-07] MEDS: Zolpidem Tartrate 5 MG TAB PO PRN (20:58)
[2020-05-07] MEDS: Insulin Glargine 14 UNITS in Pre-Filled Syringe 1 EACH SC SCH (21:10)
[2020-05-08] MEDS: Piperacillin/Tazobactam 3.375 GM in Sodium Chloride 0.9% 100 ML IVPB SCH ×5 (00:14→23:37)
[2020-05-08] MEDS: Levothyroxine Sodium 25 MCG TAB PO SCH (05:08)
[2020-05-08] MEDS: Enoxaparin Sodium 30 MG/0.3 ML SYRINGE SC SCH ×2 (08:47→20:39)
[2020-05-08] MEDS: Zinc Sulfate 220 MG CAP PO SCH (08:47)
[2020-05-08] MEDS: Clopidogrel Bisulfate 75 MG TAB PO SCH (08:48)
[2020-05-08] MEDS: Magnesium Oxide 400 MG TAB PO SCH (08:48)
[2020-05-08] MEDS: Ascorbic Acid 500 mg Chewable Tablet PO SCH (08:48)
[2020-05-08] MEDS: metFORMIN 500 MG TAB PO SCH ×2 (08:48→16:18)
[2020-05-08] MEDS: hydrALAZINE 25 MG TAB PO SCH ×4 (08:49→20:52)
[2020-05-08] MEDS: Losartan 25 MG TAB PO SCH (08:50)
[2020-05-08 08:59] LABS: Hemoglobin 13.4 g/dL (12.0-16.0); Mean Corpuscular HGB CONC 33.1 g/dL (32.0-36.0); Mean Corpuscular Hemoglobin 28.2 pg (27.0-31.0); Mean Corpuscular Volume 85.4 fL (78.0-98.0); Platelet Count 223 thou/uL (130-400); RBC Distribution Width 14.3 % (11.5-14.5); Red Blood Cell (RBC) Count 4.75 mill/uL (4.20-5.40); White Blood Cell (WBC) Count 8.4 thou/uL (4.8-10.8)
[2020-05-08 09:03] LABS: Anion Gap 12 mmol/L (10-20); BUN (Urea Nitrogen) 35 mg/dL (9.8-20.1); Calc. Creatinine Clearance 91 mL/min (70-130); Calcium 8.2 mg/dL (7.8-10.44); Carbon Dioxide 29 mmol/L (23-31); Chloride 105 mmol/L (98-107); Estimated GFR-MDRD 58; Glucose 131 mg/dL (83-110); Potassium 3.6 mmol/L (3.5-5.1); Sodium 142 mmol/L (136-145)
--- NOTE | 2020-05-08 17:28 | PDOC.HOSPP ---
- Subjective Encounter Date: 05/08/20 Encounter Time: 16:00 Subjective: F/u: CPDEMETRIUS The patient states she feels well. She says for the first time, "I feel alive." SHe says she feels that she is going to make it. She still had some hypoxia while standing up with physical therapy. She says her cough has resolved Her high flow oxygen has been weaned down by respiratory to 40L and she is maintaining saturation 94 to 95% - Objective Vital Signs & Weight: Vital Signs (12 hours) Temp Pulse Resp BP BP Pulse Ox 05/08/20 12:19 85 118/67 05/08/20 08:49 85 118/67 05/08/20 08:00 98.2 F 84 18 124/80 100 Weight Admit Weight 244 lb 11.41 oz Weight 244 lb 11.41 oz Most Recent Monitor Data Heart Rate from ECG 61 I&O: 05/07/20 05/08/20 05/09/20 06:59 06:59 06:59 Intake Total 600 860 Output Total 350 350 Balance 250 510 Result Diagrams: 05/08/20 08:32 05/08/20 08:32 Hospitalist ROS - Review of Systems Constitutional: denies: fever, chills - Medication Medications: Active Medications Generic Name Dose Route Start Last Admin Trade Name Freq PRN Reason Stop Dose Admin Acetaminophen 650 mg 04/25/20 15:11 05/04/20 10:01 Acetaminophen 325 Mg Tab PO 650 mg Q4H PRN Administration Headache/Fever/Mild Pain (1-3) Alprazolam 0.25 mg 04/29/20 15:15 05/06/20 21:22 Alprazolam 0.25 Mg Tab PO 0.25 mg Q6H PRN Administration Anxiety Ascorbic Acid 1,000 mg 04/26/20 09:00 05/08/20 08:48 Ascorbic Acid 500 Mg Chewable Tablet PO 1,000 mg DAILY BON Administration Benzonatate 100 mg 04/25/20 23:27 05/03/20 20:11 Benzonatate 100 Mg Cap PO 100 mg TIDPRN PRN Administration Cough Bisacodyl 10 mg 04/25/20 15:11 05/07/20 04:43 Bisacodyl 5 Mg Tab PO 10 mg DAILYPRN PRN Administration Constipation Clopidogrel Bisulfate 75 mg 04/27/20 09:00 05/08/20 08:48 Clopidogrel Bisulfate 75 Mg Tab PO 75 mg DAILY BON Administration Enalaprilat 2.5 mg 04/26/20 20:00 04/26/20 20:00 Enalaprilat Dihydrate 1.25 Mg/Ml Vial SLOW IVP 2.5 mg Q6H PRN Administration SBP Greater Than 170 Enoxaparin Sodium 30 mg 04/25/20 21:00 05/08/20 08:47 Enoxaparin Sodium 30 Mg/0.3 Ml Syringe SC 30 mg 0900,2100 BON Administration Hydralazine HCl 75 mg 04/29/20 09:00 05/08/20 12:19 Hydralazine 25 Mg Tab PO Not Given TID BON Insulin Glargine 14 units/ 0.14 mls @ 0 mls/hr 05/06/20 21:00 05/07/20 21:10 Miscellaneous Medication SC 0.14 mls HS BON Administration Piperacillin Sod/Tazobactam 100 mls @ 200 mls/hr 05/07/20 18:00 05/08/20 16:18 Sod 3.375 gm/ Sodium Chloride IVPB 100 mls Q6HR BON Administration Insulin Human Lispro 0 units 04/25/20 16:06 05/07/20 16:00 Humalog 300 Units/3 Ml Vial SC 3 units .MILD SLIDING SCALE PRN Administration Mild Correctional Scale Insulin Human Lispro 0 units 04/28/20 20:35 05/05/20 21:12 Humalog 300 Units/3 Ml Vial SC 5 unit .BEDTIME SLIDING SC PRN Administration Bedtime Correctional Scale Isosorbide Mononitrate 60 mg 05/04/20 09:00 05/08/20 08:49 Isosorbide Mononitrate Er 60 Mg Tab PO 60 mg DAILY BON Administration Labetalol HCl 10 mg 04/27/20 07:47 04/29/20 17:02 Labetalol Hcl 100 Mg/20 Ml Vial SLOW IVP 10 mg Q4H PRN Administration SBP Greater Than 180 Levothyroxine Sodium 25 mcg 04/27/20 06:00 05/08/20 05:08 Levothyroxine Sodium 25 Mcg Tab PO 25 mcg 0600 BON Administration Losartan Potassium 100 mg 04/27/20 09:00 05/08/20 08:50 Losartan 25 Mg Tab PO 100 mg DAILY BON Administration Magnesium Oxide 800 mg 05/05/20 09:00 05/08/20 08:48 Magnesium Oxide 400 Mg Tab PO 800 mg DAILY BON Administration Melatonin 3 mg 04/29/20 00:03 04/29/20 00:09 Melatonin 3 Mg Tab PO 3 mg HS PRN Administration Insomnia Metformin HCl 500 mg 04/26/20 17:00 05/08/20 16:18 Metformin 500 Mg Tab PO 500 mg BID-WM BON Administration Ondansetron HCl 4 mg 04/25/20 15:11 04/30/20 04:58 Ondansetron Pf 4 Mg/2 Ml Vial IVP 4 mg Q6H PRN Administration Nausea/Vomiting Zinc Sulfate 220 mg 04/26/20 09:00 05/08/20 08:47 Zinc Sulfate 220 Mg Cap PO 220 mg DAILY BON Administration Zolpidem Tartrate 5 mg 04/29/20 18:46 05/07/20 20:58 Zolpidem Tartrate 5 Mg Tab PO 5 mg HSPRN PRN Administration Insomnia - Exam General Appearance: NAD, awake alert Eye: PERRL, anicteric sclera ENT: normocephalic atraumatic, no oropharyngeal lesions Neck: no JVD Heart: RRR, no murmur, no gallops, no rubs Respiratory - other findings: diminished breath sounds bilaterally Gastrointestinal: soft, non-tender, non-distended, normal bowel sounds Extremities: no edema Skin: normal turgor, no lesions, no rashes Hosp A/P - Plan Chest X ray: diffuse bilateral interstitial airspace disease Chest X ray 05/03: worsening bilateral infiltrates Chest x ray 05/06: stable multifocal infiltrates This is a 75 year old female with history of diabetes, hypertension who presented with COVID one week prior who came in with hypoxia. Acute hypoxic respiratory failure secondary to COVID pneumonia vs bacterial pneumonia - chest X ray showed bilateral airspace disease. She is s/p ten days of dexamethasone. She received convalescent plasma 04/26 . - she was originally on cefdinir and azithromycin . 05/03 she had worsening bilateral infiltrates and WBC increased to 15. It was thought that she may have some pulmonary edema and worsening pneumonia. Attempts were made to switch to IV zosyn 05/04 but she lost IV access so received oral augmentin 05/04 to 05/06. Mid-line was placed and she was diuresed with IV lasix 05/04 to 05/06. Lasix was subsequently discontinued due to severe dizziness. SHe has now been on IV zosyn since 05/06 - 05/08: will continue day 3 of IV zosyn since she reports significant improvement. [facility] since they take patient's with high flow oxygen. Discussed with family possibly continuing IV antibiotics through the weekend and if no significant improvement consider discharging Monday if bed available Hypertension - controlled - continue losartan and hydralazine Diabetes -fasting blood sugar 186. Continue lantus 14 units Hypothyroidism - continue levothyroxine Dizziness - resolved after discontinuing lasix Hypernatremia - resolved
[2020-05-08] MEDS: HumaLOG 300 UNITS/3 ML VIAL SC PRN (17:29)
[2020-05-08] MEDS: Insulin Glargine 14 UNITS in Pre-Filled Syringe 1 EACH SC SCH (20:52)
[2020-05-08] MEDS: ALPRAZolam 0.25 MG TAB PO PRN (22:26)
[2020-05-09] MEDS: HumaLOG 300 UNITS/3 ML VIAL SC PRN ×3 (06:01→18:29)
[2020-05-09] MEDS: Levothyroxine Sodium 25 MCG TAB PO SCH (06:02)
[2020-05-09] MEDS: Piperacillin/Tazobactam 3.375 GM in Sodium Chloride 0.9% 100 ML IVPB SCH ×3 (06:02→18:21)
[2020-05-09] MEDS: Enoxaparin Sodium 30 MG/0.3 ML SYRINGE SC SCH ×2 (08:35→22:18)
[2020-05-09] MEDS: Clopidogrel Bisulfate 75 MG TAB PO SCH (08:35)
[2020-05-09] MEDS: Losartan 25 MG TAB PO SCH (08:35)
[2020-05-09] MEDS: Zinc Sulfate 220 MG CAP PO SCH (08:35)
[2020-05-09] MEDS: Magnesium Oxide 400 MG TAB PO SCH (08:35)
[2020-05-09] MEDS: Ascorbic Acid 500 mg Chewable Tablet PO SCH (08:36)
[2020-05-09] MEDS: hydrALAZINE 25 MG TAB PO SCH ×3 (08:36→22:18)
[2020-05-09] MEDS: metFORMIN 500 MG TAB PO SCH ×2 (08:36→18:22)
--- NOTE | 2020-05-09 09:19 | PDOC.HOSPP ---
- Subjective Encounter Date: 05/09/20 Encounter Time: 12:00 Subjective: Patient feeling slightly better. Still very weak but moving some with PT. - Objective Vital Signs & Weight: Vital Signs (12 hours) Temp Pulse Resp BP BP Pulse Ox 05/09/20 08:36 93 120/74 05/09/20 08:00 98.3 F 85 18 120/70 98 05/09/20 04:50 93 18 129/75 100 Weight Admit Weight 244 lb 11.41 oz Weight 244 lb 11.41 oz Most Recent Monitor Data Heart Rate from ECG 61 I&O: 05/08/20 05/09/20 05/10/20 06:59 06:59 05:59 Intake Total 860 1120 Output Total 350 400 Balance 510 720 Result Diagrams: 05/08/20 08:32 05/08/20 08:32 Additional Labs: Accuchecks 05/09/20 05/08/20 05/08/20 05:52 20:30 16:52 POC Glucose 175 H 139 H 184 H 05/08/20 05/08/20 05/07/20 12:51 05:22 21:08 POC Glucose 136 H 139 H 165 H 05/07/20 05/07/20 05/06/20 16:43 11:52 16:53 POC Glucose 215 H 235 H 241 H Hospitalist ROS - Review of Systems Constitutional: reports: weakness. denies: fever, chills Respiratory: reports: shortness of breath, SOB with excertion. denies: cough Cardiovascular: denies: chest pain, palpitations Gastrointestinal: denies: nausea, vomiting, abdominal pain - Medication Medications: Active Medications Generic Name Dose Route Start Last Admin Trade Name Freq PRN Reason Stop Dose Admin Acetaminophen 650 mg 04/25/20 15:11 05/04/20 10:01 Acetaminophen 325 Mg Tab PO 650 mg Q4H PRN Administration Headache/Fever/Mild Pain (1-3) Alprazolam 0.25 mg 04/29/20 15:15 05/08/20 22:26 Alprazolam 0.25 Mg Tab PO 0.25 mg Q6H PRN Administration Anxiety Ascorbic Acid 1,000 mg 04/26/20 09:00 05/09/20 08:36 Ascorbic Acid 500 Mg Chewable Tablet PO 1,000 mg DAILY BON Administration Benzonatate 100 mg 04/25/20 23:27 05/03/20 20:11 Benzonatate 100 Mg Cap PO 100 mg TIDPRN PRN Administration Cough Bisacodyl 10 mg 04/25/20 15:11 05/07/20 04:43 Bisacodyl 5 Mg Tab PO 10 mg DAILYPRN PRN Administration Constipation Clopidogrel Bisulfate 75 mg 04/27/20 09:00 05/09/20 08:35 Clopidogrel Bisulfate 75 Mg Tab PO 75 mg DAILY BON Administration Enalaprilat 2.5 mg 04/26/20 20:00 04/26/20 20:00 Enalaprilat Dihydrate 1.25 Mg/Ml Vial SLOW IVP 2.5 mg Q6H PRN Administration SBP Greater Than 170 Enoxaparin Sodium 30 mg 04/25/20 21:00 05/09/20 08:35 Enoxaparin Sodium 30 Mg/0.3 Ml Syringe SC 30 mg 0900,2100 BON Administration Hydralazine HCl 75 mg 04/29/20 09:00 05/09/20 08:36 Hydralazine 25 Mg Tab PO Not Given TID [facility] Insulin Glargine 14 units/ 0.14 mls @ 0 mls/hr 05/06/20 21:00 05/08/20 20:52 Miscellaneous Medication SC 0.14 mls HS [facility] Administration Piperacillin Sod/Tazobactam 100 mls @ 200 mls/hr 05/07/20 18:00 05/09/20 06:02 Sod 3.375 gm/ Sodium Chloride IVPB 100 mls Q6HR BON Administration Insulin Human Lispro 0 units 04/25/20 16:06 05/09/20 06:01 Humalog 300 Units/3 Ml Vial SC 2 units .MILD SLIDING SCALE PRN Administration Mild Correctional Scale Insulin Human Lispro 0 units 04/28/20 20:35 05/05/20 21:12 Humalog 300 Units/3 Ml Vial SC 5 unit .BEDTIME SLIDING SC PRN Administration Bedtime Correctional Scale Isosorbide Mononitrate 60 mg 05/04/20 09:00 05/09/20 08:35 Isosorbide Mononitrate Er 60 Mg Tab PO 60 mg DAILY BON Administration Labetalol HCl 10 mg 04/27/20 07:47 04/29/20 17:02 Labetalol Hcl 100 Mg/20 Ml Vial SLOW IVP 10 mg Q4H PRN Administration SBP Greater Than 180 Levothyroxine Sodium 25 mcg 04/27/20 06:00 05/09/20 06:02 Levothyroxine Sodium 25 Mcg Tab PO 25 mcg 0600 BON Administration Losartan Potassium 100 mg 04/27/20 09:00 05/09/20 08:35 Losartan 25 Mg Tab PO 100 mg DAILY BON Administration Magnesium Oxide 800 mg 05/05/20 09:00 05/09/20 08:35 Magnesium Oxide 400 Mg Tab PO 800 mg DAILY BON Administration Melatonin 3 mg 04/29/20 00:03 04/29/20 00:09 Melatonin 3 Mg Tab PO 3 mg HS PRN Administration Insomnia Metformin HCl 500 mg 04/26/20 17:00 05/09/20 08:36 Metformin 500 Mg Tab PO 500 mg BID-WM BON Administration Ondansetron HCl 4 mg 04/25/20 15:11 04/30/20 04:58 Ondansetron Pf 4 Mg/2 Ml Vial IVP 4 mg Q6H PRN Administration Nausea/Vomiting Zinc Sulfate 220 mg 04/26/20 09:00 05/09/20 08:35 Zinc Sulfate 220 Mg Cap PO 220 mg DAILY BON Administration Zolpidem Tartrate 5 mg 04/29/20 18:46 05/07/20 20:58 Zolpidem Tartrate 5 Mg Tab PO 5 mg HSPRN PRN Administration Insomnia - Exam General Appearance: NAD, awake alert ENT: moist mucosa Heart: RRR, no murmur, no gallops, no rubs Respiratory: CTAB, no wheezes, no rales, no ronchi Gastrointestinal: soft, non-tender, non-distended, normal bowel sounds Psychiatric: normal affect, normal behavior, A&O x 3 Hosp A/P - Plan Chest X ray: diffuse bilateral interstitial airspace disease Chest X ray 05/03: worsening bilateral infiltrates Chest x ray 05/06: stable multifocal infiltrates This is a 75 year old female with history of diabetes, hypertension who presented with COVID one week prior who came in with hypoxia. Acute hypoxic respiratory failure secondary to COVID pneumonia vs bacterial pneumonia - chest X ray showed bilateral airspace disease. She is s/p ten days of dexamethasone. She received convalescent plasma 04/26 . - she was originally on cefdinir and azithromycin . 05/03 she had worsening bilateral infiltrates and WBC increased to 15. It was thought that she may have some pulmonary edema and worsening pneumonia. Attempts were made to switch to IV zosyn 05/04 but she lost IV access so received oral augmentin 05/04 to 05/06. Mid-line was placed and she was diuresed with IV lasix 05/04 to 05/06. Lasix was subsequently discontinued due to severe dizziness. SHe has now been on IV zosyn since 05/06 - 05/08: will continue day 3 of IV zosyn since she reports significant improve ment. [facility] since they take patient's with high flow oxygen. Discussed with family possibly continuing IV antibiotics through the weekend and if no significant improvement consider discharging Monday if bed available Hypertension - controlled - continue losartan and hydralazine Diabetes -fasting blood sugar 186. Continue lantus 14 units Hypothyroidism - continue levothyroxine Dizziness - resolved after discontinuing lasix Hypernatremia - resolved
[2020-05-09] MEDS: Ondansetron PF 4 MG/2 ML Vial IVP PRN (10:21)
[2020-05-09] MEDS: Zolpidem Tartrate 5 MG TAB PO PRN (22:18)
[2020-05-09] MEDS: Insulin Glargine 14 UNITS in Pre-Filled Syringe 1 EACH SC SCH (22:19)
[2020-05-10] MEDS: Piperacillin/Tazobactam 3.375 GM in Sodium Chloride 0.9% 100 ML IVPB SCH ×4 (00:24→16:59)
[2020-05-10] MEDS: Levothyroxine Sodium 25 MCG TAB PO SCH (06:36)
[2020-05-10] MEDS: Clopidogrel Bisulfate 75 MG TAB PO SCH (07:27)
[2020-05-10] MEDS: Ascorbic Acid 500 mg Chewable Tablet PO SCH (07:27)
[2020-05-10] MEDS: Enoxaparin Sodium 30 MG/0.3 ML SYRINGE SC SCH ×2 (07:27→20:25)
[2020-05-10] MEDS: metFORMIN 500 MG TAB PO SCH ×2 (07:27→16:59)
[2020-05-10] MEDS: hydrALAZINE 25 MG TAB PO SCH ×3 (07:28→21:57)
[2020-05-10] MEDS: Magnesium Oxide 400 MG TAB PO SCH (07:28)
[2020-05-10] MEDS: Losartan 25 MG TAB PO SCH (07:28)
[2020-05-10] MEDS: Zinc Sulfate 220 MG CAP PO SCH (07:28)
[2020-05-10] MEDS: Ondansetron PF 4 MG/2 ML Vial IVP PRN (09:51)
[2020-05-10] MEDS: HumaLOG 300 UNITS/3 ML VIAL SC PRN (11:24)
--- NOTE | 2020-05-10 14:41 | PDOC.HOSPP ---
- Subjective Encounter Date: 05/10/20 Encounter Time: 14:40 Subjective: f/u for COVID PNA s/p convalescent plasma/Dexamethasone currently receiving Zosyn and O2 @ 2L/min NC. Awaiting potential transfer to in rehab. - Objective Vital Signs & Weight: Vital Signs (12 hours) Temp Pulse Resp BP Pulse Ox 05/10/20 14:20 88 05/10/20 08:00 98.9 F 88 20 134/76 96 05/10/20 07:28 88 05/10/20 04:20 88 99 Weight Admit Weight 244 lb 11.41 oz Weight 244 lb 11.41 oz Most Recent Monitor Data Heart Rate from ECG 61 I&O: 05/09/20 05/10/20 05/11/20 07:59 06:59 06:59 Intake Total Output Total Balance Result Diagrams: 05/08/20 08:32 05/08/20 08:32 Additional Labs: Accuchecks 05/10/20 05/10/20 05/09/20 11:21 06:40 22:28 POC Glucose 154 H 154 H 152 H 05/09/20 18:25 POC Glucose 170 H Hospitalist ROS - Medication Medications: Active Medications Generic Name Dose Route Start Last Admin Trade Name Freq PRN Reason Stop Dose Admin Acetaminophen 650 mg 04/25/20 15:11 05/04/20 10:01 Acetaminophen 325 Mg Tab PO 650 mg Q4H PRN Administration Headache/Fever/Mild Pain (1-3) Ascorbic Acid 1,000 mg 04/26/20 09:00 05/10/20 07:27 Ascorbic Acid 500 Mg Chewable Tablet PO 1,000 mg DAILY BON Administration Benzonatate 100 mg 04/25/20 23:27 05/03/20 20:11 Benzonatate 100 Mg Cap PO 100 mg TIDPRN PRN Administration Cough Bisacodyl 10 mg 04/25/20 15:11 05/07/20 04:43 Bisacodyl 5 Mg Tab PO 10 mg DAILYPRN PRN Administration Constipation Clopidogrel Bisulfate 75 mg 04/27/20 09:00 05/10/20 07:27 Clopidogrel Bisulfate 75 Mg Tab PO 75 mg DAILY BON Administration Enalaprilat 2.5 mg 04/26/20 20:00 04/26/20 20:00 Enalaprilat Dihydrate 1.25 Mg/Ml Vial SLOW IVP 2.5 mg Q6H PRN Administration SBP Greater Than 170 Enoxaparin Sodium 30 mg 04/25/20 21:00 05/10/20 07:27 Enoxaparin Sodium 30 Mg/0.3 Ml Syringe SC 30 mg 0900,2100 BON Administration Hydralazine HCl 75 mg 04/29/20 09:00 05/10/20 14:20 Hydralazine 25 Mg Tab PO Not Given TID BON Insulin Glargine 14 units/ 0.14 mls @ 0 mls/hr 05/06/20 21:00 05/09/20 22:19 Miscellaneous Medication SC 0.14 mls HS BON Administration Piperacillin Sod/Tazobactam 100 mls @ 200 mls/hr 05/07/20 18:00 05/10/20 11:17 Sod 3.375 gm/ Sodium Chloride IVPB 100 mls Q6HR BON Administration Insulin Human Lispro 0 units 04/25/20 16:06 05/10/20 11:24 Humalog 300 Units/3 Ml Vial SC 2 units .MILD SLIDING SCALE PRN Administration Mild Correctional Scale Insulin Human Lispro 0 units 04/28/20 20:35 05/05/20 21:12 Humalog 300 Units/3 Ml Vial SC 5 unit .BEDTIME SLIDING SC PRN Administration Bedtime Correctional Scale Isosorbide Mononitrate 60 mg 05/04/20 09:00 05/10/20 07:28 Isosorbide Mononitrate Er 60 Mg Tab PO 60 mg DAILY BON Administration Labetalol HCl 10 mg 04/27/20 07:47 04/29/20 17:02 Labetalol Hcl 100 Mg/20 Ml Vial SLOW IVP 10 mg Q4H PRN Administration SBP Greater Than 180 Levothyroxine Sodium 25 mcg 04/27/20 06:00 05/10/20 06:36 Levothyroxine Sodium 25 Mcg Tab PO 25 mcg 0600 BON Administration Losartan Potassium 100 mg 04/27/20 09:00 05/10/20 07:28 Losartan 25 Mg Tab PO 100 mg DAILY BON Administration Magnesium Oxide 800 mg 05/05/20 09:00 05/10/20 07:28 Magnesium Oxide 400 Mg Tab PO 800 mg DAILY BON Administration Melatonin 3 mg 04/29/20 00:03 04/29/20 00:09 Melatonin 3 Mg Tab PO 3 mg HS PRN Administration Insomnia Metformin HCl 500 mg 04/26/20 17:00 05/10/20 07:27 Metformin 500 Mg Tab PO 500 mg BID-WM BON Administration Ondansetron HCl 4 mg 04/25/20 15:11 05/10/20 09:51 Ondansetron Pf 4 Mg/2 Ml Vial IVP 4 mg Q6H PRN Administration Nausea/Vomiting Zinc Sulfate 220 mg 04/26/20 09:00 05/10/20 07:28 Zinc Sulfate 220 Mg Cap PO 220 mg DAILY BON Administration Zolpidem Tartrate 5 mg 04/29/20 18:46 05/09/20 22:18 Zolpidem Tartrate 5 Mg Tab PO 5 mg HSPRN PRN Administration Insomnia - Exam General Appearance: NAD, awake alert Eye: PERRL, anicteric sclera ENT: normocephalic atraumatic, no oropharyngeal lesions Neck: supple, symmetric, no JVD, no thyromegaly, no lymphadenopathy Heart: RRR, no murmur, no gallops, no rubs, normal peripheral pulses Respiratory - other findings: few basilar rhonchi and coarse sounds Gastrointestinal: soft, non-tender, non-distended, normal bowel sounds, no palpable masses Extremities: no cyanosis, no clubbing Skin: normal turgor, no lesions Neurological: cranial nerve grossly intact, no new deficit Musculoskeletal: normal tone, generalized weakness Psychiatric: normal affect, A&O x 3 Hosp A/P (1) Acute respiratory failure with hypoxia Code(s): J96.01 - ACUTE RESPIRATORY FAILURE WITH HYPOXIA Status: Acute Plan: Weaned off O2 support currently, continue to monitor for outpt O2 needs (2) Pneumonia due to COVID-19 virus Code(s): U07.1 - COVID-19; J12.89 - OTHER VIRAL PNEUMONIA Status: Acute Plan: s/p convalescent plasma/Dexamethasone, currently receiving Zosyn, see above #1 (3) DM2 (diabetes mellitus, type 2) Status: Chronic Plan: ISS, serial accuchecks, ADA, Glargine 14u HS (4) HTN (hypertension) Code(s): I10 - ESSENTIAL (PRIMARY) HYPERTENSION Status: Chronic Qualifiers: Hypertension type: essential hypertension Qualified Code(s): I10 - Essential (primary) hypertension Plan: Stable, continue home BP regimen (5) CAD (coronary artery disease) Code(s): I25.10 - ATHSCL HEART DISEASE OF [place] CORONARY ARTERY W/O ANG PCTRS Status: Chronic - Plan continue antibiotics, PT/OT, social service director, respiratory therapy, out of bed/ambulate, DVT proph w/SCDs Stable overall Continue pulmonary support D/C Zosyn in 24h OOB/ambulate with PT O2 via NC PRN Awaiting potential inpt rehab transfer 05/10/20
[2020-05-10] MEDS: Insulin Glargine 14 UNITS in Pre-Filled Syringe 1 EACH SC SCH (20:40)
[2020-05-10] MEDS: Zolpidem Tartrate 5 MG TAB PO PRN (21:57)
[2020-05-11] MEDS: Melatonin 3 MG TAB PO PRN ×2 (00:01→23:56)
[2020-05-11] MEDS: Piperacillin/Tazobactam 3.375 GM in Sodium Chloride 0.9% 100 ML IVPB SCH ×5 (00:01→23:46)
[2020-05-11] MEDS: Levothyroxine Sodium 25 MCG TAB PO SCH (05:54)
[2020-05-11] MEDS: Enoxaparin Sodium 30 MG/0.3 ML SYRINGE SC SCH ×2 (08:01→20:32)
[2020-05-11] MEDS: Magnesium Oxide 400 MG TAB PO SCH (08:01)
[2020-05-11] MEDS: hydrALAZINE 25 MG TAB PO SCH ×3 (08:02→20:32)
[2020-05-11] MEDS: Zinc Sulfate 220 MG CAP PO SCH (08:02)
[2020-05-11] MEDS: Losartan 25 MG TAB PO SCH (08:02)
[2020-05-11] MEDS: Ascorbic Acid 500 mg Chewable Tablet PO SCH (08:02)
[2020-05-11] MEDS: Clopidogrel Bisulfate 75 MG TAB PO SCH (08:03)
[2020-05-11] MEDS: metFORMIN 500 MG TAB PO SCH ×2 (08:03→16:21)
--- NOTE | 2020-05-11 14:58 | PDOC.HOSPP ---
- Subjective Encounter Date: 05/11/20 Encounter Time: 14:50 Subjective: f/u for COVID PNA/resp failure on current O2 1.5L/min NC. Awaiting approval for inpt rehab. s/p convalescent plasma/Dexamethasone on current Zosyn. - Objective Vital Signs & Weight: Vital Signs (12 hours) Temp Pulse Resp BP Pulse Ox Pulse Ox Pulse Ox 05/11/20 10:17 86 L 94 L 05/11/20 08:02 85 05/11/20 08:00 97.8 F 72 18 138/80 97 05/11/20 04:47 85 18 97 Pulse Ox 05/11/20 10:17 92 L 05/11/20 08:02 05/11/20 08:00 05/11/20 04:47 Weight Admit Weight 244 lb 11.41 oz Weight 244 lb 11.41 oz Most Recent Monitor Data Heart Rate from ECG 61 I&O: 05/10/20 05/11/20 05/12/20 06:59 06:59 06:59 Intake Total 700 480 Output Total 200 Balance 500 480 Result Diagrams: 05/08/20 08:32 05/08/20 08:32 Additional Labs: Accuchecks 05/11/20 05/11/20 05/10/20 11:42 06:00 20:28 POC Glucose 158 H 112 H 129 H 05/10/20 05/09/20 16:58 12:03 POC Glucose 137 H 170 H Hospitalist ROS - Medication Medications: Active Medications Generic Name Dose Route Start Last Admin Trade Name Freq PRN Reason Stop Dose Admin Acetaminophen 650 mg 04/25/20 15:11 05/04/20 10:01 Acetaminophen 325 Mg Tab PO 650 mg Q4H PRN Administration Headache/Fever/Mild Pain (1-3) Ascorbic Acid 1,000 mg 04/26/20 09:00 05/11/20 08:02 Ascorbic Acid 500 Mg Chewable Tablet PO 1,000 mg DAILY BON Administration Benzonatate 100 mg 04/25/20 23:27 05/03/20 20:11 Benzonatate 100 Mg Cap PO 100 mg TIDPRN PRN Administration Cough Bisacodyl 10 mg 04/25/20 15:11 05/07/20 04:43 Bisacodyl 5 Mg Tab PO 10 mg DAILYPRN PRN Administration Constipation Clopidogrel Bisulfate 75 mg 04/27/20 09:00 05/11/20 08:03 Clopidogrel Bisulfate 75 Mg Tab PO 75 mg DAILY BON Administration Enalaprilat 2.5 mg 04/26/20 20:00 04/26/20 20:00 Enalaprilat Dihydrate 1.25 Mg/Ml Vial SLOW IVP 2.5 mg Q6H PRN Administration SBP Greater Than 170 Enoxaparin Sodium 30 mg 04/25/20 21:00 05/11/20 08:01 Enoxaparin Sodium 30 Mg/0.3 Ml Syringe SC 30 mg 0900,2100 BON Administration Hydralazine HCl 75 mg 04/29/20 09:00 05/11/20 08:02 Hydralazine 25 Mg Tab PO 75 mg TID BON Administration Insulin Glargine 14 units/ 0.14 mls @ 0 mls/hr 05/06/20 21:00 05/10/20 20:40 Miscellaneous Medication SC 0.14 mls HS BON Administration Piperacillin Sod/Tazobactam 100 mls @ 200 mls/hr 05/07/20 18:00 05/11/20 11:56 Sod 3.375 gm/ Sodium Chloride IVPB 100 mls Q6HR BON Administration Insulin Human Lispro 0 units 04/25/20 16:06 05/10/20 11:24 Humalog 300 Units/3 Ml Vial SC 2 units .MILD SLIDING SCALE PRN Administration Mild Correctional Scale Insulin Human Lispro 0 units 04/28/20 20:35 05/05/20 21:12 Humalog 300 Units/3 Ml Vial SC 5 unit .BEDTIME SLIDING SC PRN Administration Bedtime Correctional Scale Isosorbide Mononitrate 60 mg 05/04/20 09:00 05/11/20 08:03 Isosorbide Mononitrate Er 60 Mg Tab PO 60 mg DAILY BON Administration Labetalol HCl 10 mg 04/27/20 07:47 04/29/20 17:02 Labetalol Hcl 100 Mg/20 Ml Vial SLOW IVP 10 mg Q4H PRN Administration SBP Greater Than 180 Levothyroxine Sodium 25 mcg 04/27/20 06:00 05/11/20 05:54 Levothyroxine Sodium 25 Mcg Tab PO 25 mcg 0600 BON Administration Losartan Potassium 100 mg 04/27/20 09:00 05/11/20 08:02 Losartan 25 Mg Tab PO 100 mg DAILY BON Administration Magnesium Oxide 800 mg 05/05/20 09:00 05/11/20 08:01 Magnesium Oxide 400 Mg Tab PO 800 mg DAILY BON Administration Melatonin 3 mg 04/29/20 00:03 05/11/20 00:01 Melatonin 3 Mg Tab PO 3 mg HS PRN Administration Insomnia Metformin HCl 500 mg 04/26/20 17:00 05/11/20 08:03 Metformin 500 Mg Tab PO 500 mg BID-WM BON Administration Ondansetron HCl 4 mg 04/25/20 15:11 05/10/20 09:51 Ondansetron Pf 4 Mg/2 Ml Vial IVP 4 mg Q6H PRN Administration Nausea/Vomiting Zinc Sulfate 220 mg 04/26/20 09:00 05/11/20 08:02 Zinc Sulfate 220 Mg Cap PO 220 mg DAILY BON Administration Zolpidem Tartrate 5 mg 04/29/20 18:46 05/10/20 21:57 Zolpidem Tartrate 5 Mg Tab PO 5 mg HSPRN PRN Administration Insomnia - Exam General Appearance: NAD, awake alert Eye: PERRL, anicteric sclera ENT: normocephalic atraumatic, no oropharyngeal lesions Neck: supple, symmetric, no JVD, no thyromegaly Heart: RRR, no murmur, no gallops, no rubs, normal peripheral pulses Heart - other findings: S1, S2 Respiratory: CTAB, no wheezes, no rales, no ronchi, normal chest expansion Gastrointestinal: soft, non-tender, non-distended, normal bowel sounds, no palpable masses Extremities: no cyanosis, no clubbing, no edema Skin: normal turgor Neurological: cranial nerve grossly intact, no new deficit Musculoskeletal: normal tone, generalized weakness Psychiatric: normal affect, A&O x 3 Hosp A/P (1) Acute respiratory failure with hypoxia Code(s): J96.01 - ACUTE RESPIRATORY FAILURE WITH HYPOXIA Status: Acute Plan: Continue O2 supplementation via NC (2) Pneumonia due to COVID-19 virus Code(s): U07.1 - COVID-19; J12.89 - OTHER VIRAL PNEUMONIA Status: Acute Plan: Continue Zosyn another 24h then d/c, continue Lovenox (3) DM2 (diabetes mellitus, type 2) Status: Chronic (4) HTN (hypertension) Code(s): I10 - ESSENTIAL (PRIMARY) HYPERTENSION Status: Chronic Qualifiers: Hypertension type: essential hypertension Qualified Code(s): I10 - Essential (primary) hypertension (5) CAD (coronary artery disease) Code(s): I25.10 - ATHSCL HEART DISEASE OF [place] CORONARY ARTERY W/O ANG PCTRS Status: Chronic - Plan continue antibiotics, PT/OT, social media project manager, respiratory therapy, DVT proph w/SCDs Stable overall Continue pulmonary support D/C Zosyn in 24h OOB/ambulate with PT O2 via NC PRN Awaiting potential inpt rehab transfer 05/12/20
[2020-05-11] MEDS: Zolpidem Tartrate 5 MG TAB PO PRN (20:32)
[2020-05-11] MEDS: Insulin Glargine 14 UNITS in Pre-Filled Syringe 1 EACH SC SCH (20:33)
[2020-05-11] MEDS: Acetaminophen 325 MG TAB PO PRN (20:50)
[2020-05-11] MEDS ORDERED: Ibuprofen 200 MG TAB PO PRN (23:56)
[2020-05-12] MEDS: Piperacillin/Tazobactam 3.375 GM in Sodium Chloride 0.9% 100 ML IVPB SCH ×2 (05:15→12:32)
[2020-05-12] MEDS: Levothyroxine Sodium 25 MCG TAB PO SCH (05:16)
[2020-05-12] MEDS: Bisacodyl 5 MG TAB PO PRN (07:56)
[2020-05-12] MEDS: Losartan 25 MG TAB PO SCH (07:57)
[2020-05-12] MEDS: Zinc Sulfate 220 MG CAP PO SCH (07:57)
[2020-05-12] MEDS: Magnesium Oxide 400 MG TAB PO SCH (07:57)
[2020-05-12] MEDS: Clopidogrel Bisulfate 75 MG TAB PO SCH (07:57)
[2020-05-12] MEDS: hydrALAZINE 25 MG TAB PO SCH ×2 (07:58→14:48)
[2020-05-12] MEDS: metFORMIN 500 MG TAB PO SCH (07:58)
[2020-05-12] MEDS: Enoxaparin Sodium 30 MG/0.3 ML SYRINGE SC SCH (07:58)
[2020-05-12] MEDS: Ascorbic Acid 500 mg Chewable Tablet PO SCH (07:58)
[2020-05-12] MEDS: Ondansetron PF 4 MG/2 ML Vial IVP PRN (09:31)
[2020-05-12 13:33] VITALS: TEMP 98.1
[2020-05-12 15:06] VITALS: BP 133/77
--- NOTE | 2020-05-13 02:18 | DIS ---
DATE OF ADMISSION: 04/25/2020 DATE OF DISCHARGE: 05/12/2020 DISCHARGE DIAGNOSES: 1. Acute hypoxic respiratory failure secondary to #2. 2. Pneumonia secondary to COVID-19 virus, resolving. 3. Diabetes mellitus type 2, chronic. 4. Hypertension, stable. 5. Coronary artery disease, chronic, stable. 6. Deconditioning. CONSULTATIONS: None. PERTINENT LABORATORY AND X-RAY FINDINGS: Ferritin ranged between 121 to 162. CRP ranged between 4.08 to 22.51. CBC showed a white blood cell count ranging between 2.6 to 17.9. D-dimer ranged between 0.92 to 2.31. Sputum culture dated 05/03/2020, showed normal respiratory cristian. Portable chest x-ray dated 04/25/2020, showed diffuse bilateral pulmonary infiltrates compatible with pneumonia. HOSPITAL COURSE: The patient was initially admitted after presenting with increased shortness of breath in the context of previous COVID-19 positive testing. The patient underwent chest imaging showing diffuse pulmonary infiltrates with associated hypoxia. The patient was placed on supplemental oxygen and given convalescent plasma in addition to remdesivir. The patient was also placed on broad-spectrum IV antibiotic therapy in addition to vitamin C and zinc supplementation. The patient was slow to clinically improve with protracted hospital course. The patient transitioned from high-flow oxygen requirements initially down to 2 L/minute by nasal cannula by the time of discharge. The patient remained clinically deconditioned with general weakness and was deemed an appropriate candidate for ongoing skilled care through inpatient rehabilitation. The patient was initially considered for potential LTAC transfer; however, due to stabilization of respiratory status and decreased oxygen requirements, the patient is able to transition to inpatient rehab. I have examined the patient at the time of discharge and discussed followup instructions. The patient verbalized understanding and agreement, ready for discharge on 05/12/2020. DISCHARGE MEDICATIONS: 1. Plavix 75 mg p.o. daily. 2. Cozaar 100 mg p.o. q.a.m. 3. Metformin 500 mg p.o. b.i.d. 4. Isosorbide dinitrate 30 mg p.o. q.a.m. 5. Acarbose 25 mg p.o. q.a.m. 6. Protonix 40 mg p.o. daily. 7. Levothyroxine 25 mcg p.o. daily. 8. Hydralazine 75 mg p.o. t.i.d. 9. Lovenox 30 mg subcutaneously b.i.d. 10. Magnesium oxide 800 mg p.o. daily. 11. Vitamin C 1000 mg p.o. daily. 12. Zinc sulfate 220 mg p.o. daily. FOLLOWUP: The patient may follow up with her primary care provider, Joana Vidal after discharge from inpatient rehabilitation. CONDITION ON DISCHARGE: Fair. ACTIVITY: Ad ky, rolling walker with standby assistance. DIET: ADA. CODE STATUS: Full. DISPOSITION: Transfer to [facility] 05/12/2020. TIME SPENT: Total time preparing and coordinating discharge, 35 minutes. Job ID: [id number]
== END 2020-05-12 15:31 | DRG 177 ==
LOC: ERS 10:44 → T4-A 16:00
PROVIDERS: ADMIT Internal Medicine; ATTEND Family Medicine
PROC: XW033E5 Introduction of Remdesivir Anti-infective into Peripheral Vein, Percutaneous Approach, New Technology Group 5 (ICD-10-PCS; principal; 2020-04-25)
PROC: 8E0ZXY6 Isolation (ICD-10-PCS; 2020-04-25)
PROC: XW13325 Transfusion of Convalescent Plasma (Nonautologous) into Peripheral Vein, Percutaneous Approach, New Technology Group 5 (ICD-10-PCS; 2020-04-26)
DX: U07.1 COVID-19 (principal); J96.01 Acute respiratory failure with hypoxia; J12.89 Other viral pneumonia; J15.9 Unspecified bacterial pneumonia; Z68.41 Body mass index [BMI] 40.0-44.9, adult; E87.0 Hyperosmolality and hypernatremia; E11.9 Type 2 diabetes mellitus without complications; I25.10 Atherosclerotic heart disease of native coronary artery without angina pectoris; I50.9 Heart failure, unspecified; I11.0 Hypertensive heart disease with heart failure; E66.01 Morbid (severe) obesity due to excess calories; F41.9 Anxiety disorder, unspecified; D72.829 Elevated white blood cell count, unspecified; T38.0X5A Adverse effect of glucocorticoids and synthetic analogues, initial encounter; G47.00 Insomnia, unspecified; R42 Dizziness and giddiness; Z90.710 Acquired absence of both cervix and uterus; Z95.5 Presence of coronary angioplasty implant and graft; Z95.1 Presence of aortocoronary bypass graft; Z88.5 Allergy status to narcotic agent; Z88.8 Allergy status to other drugs, medicaments and biological substances; Z79.899 Other long term (current) drug therapy; Z79.890 Hormone replacement therapy; Z79.82 Long term (current) use of aspirin; Z79.84 Long term (current) use of oral hypoglycemic drugs; Z79.02 Long term (current) use of antithrombotics/antiplatelets; Z28.21 Immunization not carried out because of patient refusal
CPT/HCPCS: 36415; 36416; 36430; 71045; 80048; 80053; 80076; 82728; 82805; 83735; 84484; 85025; 85027; 85379; 86140; 86850; 86900; 86901; 87070; 87205; 93005; 96365; 96375; J0456; J0696; J1100; J1630; J1650; J1815; J1940; J2405; J2543; J3490; J7050; J8540; P9017